=== PATIENT | male | born 1945 | race Caucasian/White ===

== ENCOUNTER → 2017-10-11 | Outpatient (CLI) | payer OTHER ==
[~2017-10-11] MED LIST: ALDACTONE25 MG PO; ALLOPURINOL 30300 M1 PO; ALLOPURINOL 30300 M3 PO; BACTROBAN CREAM30 G1 TOP; BYSTOLIC20 MG PO; CARDIZEM CD120 MG PO; CARDIZEM CD240 MG; CARTIA XT240 M1 PO; CASODEX 50 MG T50 M1 PO; CATAPRESS3 TOP; CLONIDINE HCL0.3 M2; CLONIDINE HCL0.3 M2 PO; CREON DR 12,001 EACH PO; DEMADEX20 MG PO; DILTIAZEM ER240 M1; DILTIAZEM ER240 M1 PO; DYNACIN100 MG; DYNACIN100 MG PO; EFFEXOR XR37.5 MG PO; FOLIC ACID1 MG; FOLIC ACID1 MG PO; GLUCOPHAGE1000 MG; GLUCOPHAGE1000 MG PO; GLUCOTROL5 MG; GLUCOTROL5 MG PO; GRALISE600 MG; GRALISE600 MG PO; HUMALOG PE100 UNIT/M SC; IBUPROFEN 800800 M1; IBUPROFEN 800800 M1 PO; IRON325; IRON325 PO; K-DUR 20 MEQ T20 MEQ PO; KEFLEX500 M1 PO; LANTUS SOL100 UNIT/1 SQ; LEVOTHYROXINE100 MC1 PO; LISINOPRIL40 MG PO; LOSARTAN-HCTZ1 EAC3 PO; METHOTREXATE 22.5 MG; METHOTREXATE 22.5 MG IJ; METHOTREXATE 22.5 MG PO; MINOCIN100 MG PO; MULTIVITAMINS1 EAC7; MULTIVITAMINS1 EAC7 PO; MYSOLINE50 MG PO; NEURONTIN 400400 M1 PO; NORCO 10-325 T1 EACH PO; NORCO 5-325 TA1 EAC1 PO; NOVOLOG100 UNIT/1 SUBQ; PACERONE 200 M200 M1 PO; PAXIL 20 MG TAB20 M1 PO; PERCOCET 5-3251 EACH; POTASSIUM20; POTASSIUM20 PO; PREVALITE PACKE1 PKT; PREVALITE PACKE1 PKT PO; PROBIOTIC1 EACH; PROBIOTIC1 EACH PO; PROPAFENONE 15150 MG PO; PROTONIX40 M1 PO; SINGULAIR 10 MG10 M1 PO; SPIRONOLACTONE25 M1; SPIRONOLACTONE25 M1 PO; TAMSULOSIN HCL0.4 MG; TAMSULOSIN HCL0.4 MG PO; TORSEMIDE20 MG; TORSEMIDE20 MG PO; TRIAMTERENE-HC1 EAC3 PO; VENTOLIN HFA 1818 GM INH; VITAMIN D1000 UNI1 PO; VITAMINC500 PO; VITCB500GO; XARELTO20 MG PO
== END ==
LOC: M.LAB 11:09
DX: I48.0 Paroxysmal atrial fibrillation (principal)

== ENCOUNTER 2017-12-24 09:42 | Emergency (ER) | payer OTHER ==
[~2017-12-24] VITALS: Ht 175.3 cm; Wt 90.7 kg
[~2017-12-24 09:42] MED LIST changes: -BACTROBAN CREAM30 G1 TOP; -CASODEX 50 MG T50 M1 PO; -KEFLEX500 M1 PO; -LEVOTHYROXINE100 MC1 PO; -VITAMIN D1000 UNI1 PO
[2017-12-24] MEDS ORDERED: CASODEX 50 MG T50 M1 PO (10:07)
[2017-12-24] MEDS ORDERED: VITAMIN D1000 UNI1 PO (10:07)
[2017-12-24] MEDS ORDERED: LEVOTHYROXINE100 MC1 PO (10:09)
[2017-12-24 10:37] LABS: ABSOLUTE EOSINOPHILS 0.3 thou/uL (0.0-0.7); ABSOLUTE LYMPHOCYTES 0.7 thou/uL (0.8-5.3); ABSOLUTE MONOCYTES 0.3 thou/uL (0.0-1.2); ABSOLUTE NEUTROPHILS 3.8 thou/uL (1.6-8.1); BASOPHILS 0.5 %; EOSINOPHILS 5.4 %; HEMATOCRIT 35.4 % (42.0-52.0); HEMOGLOBIN 11.9 gm/dL (14.0-18.0); LYMPHOCYTES 13.1 %; MCH 31.1 pg (26.0-34.0); MCHC 33.5 g/dL (28.0-37.0); MCV 92.7 fL (80.0-100.0); MONOCYTES 5.4 %; MPV 7.1 fl. (7.2-11.1); NUCLEATED RBCS 0 /100WBC; PLATELET COUNT* 208 thou/uL (150-400); POLYS 75.6 %; RBC 3.82 mil/uL (4.50-6.00); RDW-CV 14.9 % (10.5-14.5)
[2017-12-24 10:43] LABS: APTT 34.8 Seconds (25.0-31.3); CALCIUM 8.5 mg/dL (8.5-10.1); CREATININE 2.3 mg/dL (0.6-1.3); INR 1.1; POTASSIUM 3.6 mmol/L (3.5-5.1); PROTIME 10.9 Seconds (9.20-11.50)
[2017-12-24 10:48] LABS: ALBUMIN 3.3 g/dL (3.4-5.0); TOTAL BILIRUBIN 0.2 mg/dL (<0.1-1.0); TOTAL PROTEIN 6.2 g/dL (6.4-8.2)
[2017-12-24] MEDS ORDERED: KEFLEX500 M1 PO (14:07)
[2017-12-24] MEDS ORDERED: BACTROBAN CREAM30 G1 TOP (14:09)
[2017-12-24 14:25] VITALS: BP 128/66
== END 2017-12-24 14:28 | disposition home or self-care (01) ==
LOC: M.ERS 09:42
PROVIDERS: Nurse Practitioner Family
DX: S80.02XA Contusion of left knee, initial encounter (principal); S80.212A Abrasion, left knee, initial encounter; S80.211A Abrasion, right knee, initial encounter; E11.9 Type 2 diabetes mellitus without complications; I10 Essential (primary) hypertension; M10.9 Gout, unspecified; M19.90 Unspecified osteoarthritis, unspecified site; Z90.49 Acquired absence of other specified parts of digestive tract; Z87.891 Personal history of nicotine dependence; W10.9XXA Fall (on) (from) unspecified stairs and steps, initial encounter; Y93.89 Activity, other specified; Y92.89 Other specified places as the place of occurrence of the external cause; Y99.8 Other external cause status

== ENCOUNTER → 2018-01-20 | Outpatient (CLI) | payer OTHER ==
[~2018-01-20] MED LIST changes: +BACTROBAN CREAM30 G1 TOP; +CASODEX 50 MG T50 M1 PO; +KEFLEX500 M1 PO; +LEVOTHYROXINE100 MC1 PO; +VITAMIN D1000 UNI1 PO
--- NOTE | 2018-01-20 18:47 | 2DMMODE ---
[place] [address] 2 D/M-MODE ECHOCARDIOGRAM Name: ANAYA,TRINIAshley ALEXANDER [id number] Admission: 01/20/18 Attend Phys: Raymon Guerrier, Discharge: Date of : 47 Date of Service: 01/20/18 1847 Report #: [id number] THIS REPORT FOR: //name// APPROVED REPORT Study performed: 01/20/2018 15:18:26 EXAM: Comprehensive 2D, Doppler, and color-flow Echocardiogram Patient Location: Out-Patient Status: routine BSA: 2.09 HR: 49 bpm BP: 118/68 mmHg Other Information Study Quality: Good Indications Mitral Valve Disease 2D Dimensions LVEF(%): 84.06 (>50%) IVSd: 14.34 (7-11mm) LVOT Diam: 20.36 (18-24mm) LVDd: 61.28 mm PWd: 11.67 (7-11mm) Ascending Ao: 35.67 (22-36mm) LVDs: 28.22 (25-40mm) Aortic Root: 23.77 mm Ventura's LVEF: 84.06 % Volumes Left Atrial Volume (Systole) LA ESV Index: 28.60 mL/m2 Aortic Valve AoV Peak Owen.: 1.87 m/s AO Peak Gr.: 13.99 mmHg LVOT Max P.79 mmHg AO Mean Gr.: 7.17 mmHg LVOT Mean P.94 mmHg LVOT Max V: 0.97 m/s AO V2 VTI: 32.72 cm LVOT Mean V: 0.65 m/s JULIO C (VTI): 1.69 cm2 LVOT V1 VTI: 16.95 cm Mitral Valve MV Peak Gr.: 9.19 mmHg MV Mean Gr.: 3.57 mmHg E/A Ratio: 3.15 [place] [address] 2 D/M-MODE ECHOCARDIOGRAM Name: ILEANA JULIENAshley ALEXANDER Room: [facility]#: [id number] Admission: 01/20/18 Attend Phys: Raymon Guerrier, Discharge: Date of : 47 Date of Service: 01/20/18 1847 Report #: [id number] MV Decel. Time: 229.99 ms MV E Max Owen.: 1.47 m/s MV PHT: 66.70 ms MVA (PHT): 3.30 cm2 TDI E/Lateral E': 9.80 E/Medial E': 11.31 Medial E' Owen.: 0.13 m/s Lateral E' Owen.: 0.15 m/s Pulmonary Valve PV Peak Owen.: 1.14 m/s PV Peak Gr.: 5.17 mmHg Tricuspid Valve TR Peak Gr.: 39.26 mmHg RVSP: 44.26 mmHg Left Ventricle The left ventricle is normal size. There is normal LV segmental wall motion. There is normal left ventricular wall thickness. Left ventricular systolic function is normal. The left ventricular ejection fraction is within the normal range. LVEF is 55-60%. Right Ventricle The right ventricle is normal size. The right ventricular systolic function is normal. Atria Left atrium is moderately dilated. The right atrium size is normal. Aortic Valve Mild aortic valve sclerosis. No aortic regurgitation is present. There is no aortic valvular stenosis. Mitral Valve There is mild mitral annular calcification. Moderate mitral regurgitation. No evidence of mitral valve stenosis. Tricuspid Valve The tricuspid valve is normal in structure. Mild to moderate tricuspid regurgitation. The RVSP is __44.3 mmHg. Pulmonic Valve The pulmonary valve is normal in structure. Mild to moderate [place] [address] 2 D/M-MODE ECHOCARDIOGRAM Name: ILEANA JULIENAshley ALEXANDER Room: [facility]#: [id number] Admission: 01/20/18 Attend Phys: Raymon Guerrier, Discharge: Date of : 47 Date of Service: 01/20/18 1847 Report #: [id number] Great Vessels The aortic root is normal in size. IVC is normal in size and collapses <50% with inspiration. Pericardium There is no pericardial effusion. <Conclusion> The left ventricle is normal size. There is normal left ventricular wall thickness. Left ventricular systolic function is normal. The left ventricular ejection fraction is within the normal range. LVEF is 55-60%. The right ventricle is normal size. Left atrium is moderately dilated. The right atrium size is normal. Mild aortic valve sclerosis. No aortic regurgitation is present. There is no aortic valvular stenosis. There is mild mitral annular calcification. Moderate mitral regurgitation. No evidence of mitral valve stenosis. The tricuspid valve is normal in structure. Mild to moderate tricuspid regurgitation. The RVSP is __44.3 mmHg. IVC is normal in size and collapses <50% with inspiration. There is no pericardial effusion. There is normal LV segmental wall motion. <ELECTRONICALLY SIGNED> By: Yanick Moore MD, FACC 01/20/181846 46 46 Yanick Moore MD, FACC /INF
== END ==
LOC: M.CRD 15:00
DX: I08.1 Rheumatic disorders of both mitral and tricuspid valves (principal); I25.10 Atherosclerotic heart disease of native coronary artery without angina pectoris; I71.9 Aortic aneurysm of unspecified site, without rupture; I48.91 Unspecified atrial fibrillation

== ENCOUNTER → 2018-02-28 | Outpatient (CLI) | payer OTHER | LOC: M.RAD 11:24 | DX: M25.512 Pain in left shoulder (principal); R29.898 Other symptoms and signs involving the musculoskeletal system; W19.XXXD Unspecified fall, subsequent encounter ==

== ENCOUNTER → 2018-03-11 | Outpatient (CLI) | payer OTHER ==
[2018-03-11 15:51] LABS: CREATININE 2.4 mg/dL (0.6-1.3)
== END ==
LOC: M.LAB 12:30 → M.MRI 13:30 → M.LAB 15:21
PROVIDERS: Registered Nurse Diabetes Educator
DX: M54.6 Pain in thoracic spine (principal); M54.5 Low back pain; R29.898 Other symptoms and signs involving the musculoskeletal system; W19.XXXD Unspecified fall, subsequent encounter

== ENCOUNTER → 2018-10-03 | Outpatient (CLI) | payer OTHER ==
[2018-10-03 10:34] LABS: ALBUMIN 3.3 g/dL (3.4-5.0); CALCIUM 8.6 mg/dL (8.5-10.1); CREATININE 2.5 mg/dL (0.6-1.3); POTASSIUM 3.4 mmol/L (3.5-5.1); TOTAL BILIRUBIN 0.2 mg/dL (<0.1-1.0); TOTAL PROTEIN 6.6 g/dL (6.4-8.2)
== END ==
LOC: M.LAB 09:42
PROVIDERS: Nurse Practitioner Family
DX: I48.92 Unspecified atrial flutter (principal)

== ENCOUNTER → 2018-10-10 | Outpatient (CLI) | payer OTHER ==
[2018-10-10 13:36] VITALS: BP 119/86
[2018-10-10 13:54] VITALS: BP 123/90
[2018-10-10 13:57] VITALS: BP 123/90
[2018-10-10 13:58] VITALS: BP 127/83
[2018-10-10 14:00] VITALS: BP 128/89
[2018-10-10 14:05] VITALS: BP 131/85
== END ==
LOC: M.RAD 11:50 → M.CL 11:50
DX: I48.92 Unspecified atrial flutter (principal); I50.32 Chronic diastolic (congestive) heart failure; I10 Essential (primary) hypertension; I48.0 Paroxysmal atrial fibrillation; E11.9 Type 2 diabetes mellitus without complications; E03.9 Hypothyroidism, unspecified; Z79.4 Long term (current) use of insulin; Z79.899 Other long term (current) drug therapy

== ENCOUNTER → 2019-02-04 | Outpatient (CLI) | payer OTHER | LOC: M.CT 01-30 08:55 | DX: C61 Malignant neoplasm of prostate (principal); N20.0 Calculus of kidney; N28.89 Other specified disorders of kidney and ureter; I70.0 Atherosclerosis of aorta; Z92.3 Personal history of irradiation ==

== ENCOUNTER → 2019-03-17 | Outpatient (CLI) | payer OTHER ==
[2019-03-17] VITALS (12 sets, daily range): BP systolic 127–1222; BP diastolic 73–94
[~2019-03-17] MED LIST changes: +CARDIZEM CD240 M1; -CARTIA XT240 M1 PO; +CATAPRES0.2 MG; -EFFEXOR XR37.5 MG PO; +EFFEXOR XR75 MG; +LANTUS SOL100 UNIT/1 SUBQ; -LEVOTHYROXINE100 MC1 PO; +LEVOTHYROXINE75 MCG; +MYSOLINE250 M1; -MYSOLINE50 MG PO; +NOVOLOG FL100 UNIT/M SUBQ; +VITAMIN B-121000 MC3; -VITAMIN D1000 UNI1 PO; +VITAMIN D5000 UNIT; +XARELTO15 MG
--- NOTE | 2019-03-17 14:41 | TEE ---
[place] [address] TRANSESOPHAGEAL ECHOCARDIOGRAM Name: TRINI JULIEN Room: [facility]#: [id number] Admission: 03/17/19 Attend Phys: Raymon Guerrier, Discharge: Date of : 47 Date of Service: 03/17/19 1441 Report #: [id number] THIS REPORT FOR: //name// APPROVED REPORT Study performed: 03/17/2019 13:14:12 EXAM: Transesophageal Echocardiogram Patient Location: In-Patient Status: routine BSA: 2.04 HR: 103 bpm BP: 138/90 mmHg Rhythm: Atrial Fibrillation Other Information Study Quality: Good Indications pre-ablation Echo Enhancing Agent Indication: Rule out Shunt Agent(s) / Amount(s) Used: Optison, Agitated Saline 10 cc Procedure After obtaining informed consent, patient underwent transesophageal echo in the [employer]. Type of Sedation : Conscious Sedation Sedation was administered by Tawny Biggs RN. Sedation start time: 1321 Case end Time: 1336 Sedation was achieved intravenously with: Versed (2) Fentanyl (50) Transesophageal probe was inserted and advanced into esophagus without difficulty by Raymon Guerrier MD, FACC. Echo enhancement indication: R/O Septal defect. Echo enhancement agent administered: Agitated Saline The TONY was performed without complications. Throughout the procedure, the blood pressure, pulse oximetry, cardiac rhythm, and rate were monitored. The patient tolerated the procedure without adverse effects. Recovery from conscious sedation was uneventful and [place] [address] TRANSESOPHAGEAL ECHOCARDIOGRAM Name: TRINI JULIEN [facility] [id number] Admission: 03/17/19 Attend Phys: Raymon Guerrier, Discharge: Date of : 47 Date of Service: 03/17/19 1441 Report #: [id number] Left Ventricle The left ventricle is normal size. There is normal LV segmental wall motion. There is normal left ventricular wall thickness. Left ventricular systolic function is normal. LVEF is 55-60%. Right Ventricle The right ventricle is normal size. The right ventricular systolic function is normal. Atria The left atrium size is normal. No thrombus is visualized in the left atrium or appendage. Injection of contrast documented no interatrial shunt. The right atrium size is normal. Aortic Valve Aortic valve leaflets are mildly thickened. No aortic regurgitation is present. There is no aortic valvular stenosis. Mitral Valve The mitral valve is normal in structure. Moderate to severe anteriorly directed mitral regurgitation No evidence of mitral valve stenosis. Tricuspid Valve Tricuspid valve is not well visualized. Mild tricuspid regurgitation. Pulmonic Valve Pulmonic valve is not well visualized. Great Vessels The aortic root is normal in size. Pericardium There is no pericardial effusion. <Conclusion> The left ventricle is normal size. There is normal left ventricular wall thickness. Left ventricular systolic function is normal. LVEF is 55-60%. Aortic valve leaflets are mildly thickened. Moderate to severe anteriorly directed mitral regurgitation Mild tricuspid regurgitation. The left atrium size is normal. [address] [address] TRANSESOPHAGEAL ECHOCARDIOGRAM Name: TRINI JULIEN Room: [facility]#: [id number] Admission: 03/17/19 Attend Phys: Raymon Guerrier, Discharge: Date of : 47 Date of Service: 03/17/19 1441 Report #: [id number] No thrombus is visualized in the left atrium or appendage. Injection of contrast documented no interatrial shunt. <ELECTRONICALLY SIGNED> By: Raymon Guerrier MD, FACC 03/17/191440 40 40 Raymon Guerrier MD, FACC /INF
== END | disposition home or self-care (01) ==
LOC: M.CL 12:04
DX: I08.1 Rheumatic disorders of both mitral and tricuspid valves (principal); I48.91 Unspecified atrial fibrillation; I11.0 Hypertensive heart disease with heart failure; I50.9 Heart failure, unspecified; E11.9 Type 2 diabetes mellitus without complications; M10.9 Gout, unspecified; M19.90 Unspecified osteoarthritis, unspecified site; G62.9 Polyneuropathy, unspecified; F32.9 Major depressive disorder, single episode, unspecified; Z79.01 Long term (current) use of anticoagulants; Z98.890 Other specified postprocedural states; Z79.899 Other long term (current) drug therapy; Z87.442 Personal history of urinary calculi

== ENCOUNTER → 2019-03-30 | Outpatient (CLI) | payer OTHER ==
[2019-03-30 09:06] LABS: HEMATOCRIT 42.5 % (42.0-52.0); HEMOGLOBIN 14.5 gm/dL (14.0-18.0); MCH 32.2 pg (26.0-34.0); MCHC 34.1 g/dL (28.0-37.0); MCV 94.5 fL (80.0-100.0); MPV 7.3 fl. (7.2-11.1); RBC 4.5 mil/uL (4.50-6.00); RDW-CV 14.7 % (10.5-14.5); WBC 5.4 thou/uL (4.0-11.0)
[2019-03-30 09:27] LABS: ALBUMIN 3.6 g/dL (3.4-5.0); CALCIUM 8.7 mg/dL (8.5-10.1); CREATININE 2.1 mg/dL (0.6-1.3); POTASSIUM 4.4 mmol/L (3.5-5.1); TOTAL BILIRUBIN 0.3 mg/dL (<0.1-1.0); TOTAL PROTEIN 6.3 g/dL (6.4-8.2)
== END ==
LOC: M.LAB 03-05 08:47
PROVIDERS: Internal Medicine Cardiovascular Disease
DX: D35.01 Benign neoplasm of right adrenal gland (principal); K86.89 Other specified diseases of pancreas; I48.91 Unspecified atrial fibrillation

== ENCOUNTER → 2019-12-02 | Outpatient (CLI) | payer OTHER ==
[~2019-12-02] MED LIST changes: +CARTIA XT180 M1 PO; +CARVEDILOL12.5 MG PO; +LANTUS SUBQ; -LEVOTHYROXINE75 MCG; +LEVOTHYROXINE75 MCG PO; +LYRICA 50 MG50 MG PO; +MYSOLINE50 MG PO; +OMEPRAZOLE40 MG PO; +PREGABALIN75 MG PO; +PROVIGIL 100 M100 M1 PO; +VITAMIN B12-FO1 EAC1 PO; +VITAMIN D35000 UNI2 PO; +ZALEPLON 10 MG10 M1 PO
== END ==
LOC: M.WC 08:45
DX: T81.89XA Other complications of procedures, not elsewhere classified, initial encounter (principal); E11.65 Type 2 diabetes mellitus with hyperglycemia; E11.40 Type 2 diabetes mellitus with diabetic neuropathy, unspecified; G47.30 Sleep apnea, unspecified; I11.0 Hypertensive heart disease with heart failure; I50.9 Heart failure, unspecified; I48.20 Chronic atrial fibrillation, unspecified; M06.9 Rheumatoid arthritis, unspecified; M10.9 Gout, unspecified; F32.9 Major depressive disorder, single episode, unspecified; Z98.49 Cataract extraction status, unspecified eye; Z85.46 Personal history of malignant neoplasm of prostate; Z90.49 Acquired absence of other specified parts of digestive tract; Z79.4 Long term (current) use of insulin; Y92.89 Other specified places as the place of occurrence of the external cause; Y83.8 Other surgical procedures as the cause of abnormal reaction of the patient, or of later complication, without mention of misadventure at the time of the procedure

== ENCOUNTER 2019-12-03 09:58 | Inpatient (IN) | payer OTHER ==
[~2019-12-03] VITALS: Ht 175.3 cm; Wt 92.5 kg
--- NOTE | ~2019-12-03 | OP ---
[address] [address] OPERATIVE REPORT Name: TRINI JULIEN Room: [address] IN .R.#: [id number] Admission: 12/03/19 Attend Phys: Nara Smith MD Discharge: Date of : 47 Report #: [id number] THIS REPORT FOR: //name// cc: Ger Francisco MD, David L. MD ~ THIS REPORT FOR: //name// CC: Ger Smith DICTATED BY: Taurus Danielson DO DATE OF SERVICE: 12/04/2019 PREOPERATIVE DIAGNOSIS: Failed left ankle ORIF with wound dehiscence and ulcers down to the level of bone. POSTOPERATIVE DIAGNOSIS: Failed left ankle ORIF with wound dehiscence and ulcers down to the level of bone. PROCEDURE: Left below-knee amputation. SURGEON: Katerin Haque D.O. HYDRAULIC LIFT DRIVER: Taurus Danielson D.O. ANESTHESIA: Spinal. FLUIDS: Crystalloid per Anesthesia. ESTIMATED BLOOD LOSS: 100 mL. DRAINS: None. SPECIMENS: Left lower leg. COMPLICATIONS: None. CONDITION: Stable to PACU. DISPOSITION: Recovery in PACU and transfer to the floor. ANTIBIOTICS: Scheduled Ancef and cefepime. TOURNIQUET: Approximately 30 minutes at [address] [address] OPERATIVE REPORT Name: TRINI JULIEN Room: [address]#: [id number] Admission: 12/03/19 Attend Phys: Nara Smith MD Discharge: Date of : 47 Report #: [id number] INDICATIONS FOR PROCEDURE: The patient is a 74-year-old male who sustained a left ankle fracture while traveling in [place]. He underwent surgery there. Upon returning back home, he followed up in our clinic. His hardware was found to have failed. He then attempted a repeat closed reduction, but continued to ambulate on the left lower extremity. He does have a known history of neuropathy and diabetes. He was recently readmitted for altered mental status. He was found to have blood cultures with gram-positive cocci. He had wound dehiscence down to the level of the bone with a foul-smelling odor. Several long discussions were had with the family in regards to the best treatment moving forward. We discussed both limb salvage and below-knee amputation. The risks, benefits, and alternatives and possible complications including continued wound issues, infection, need for further amputation, need for further surgeries, inability to ambulate on the extremity, DVT, PE, sepsis, , possible complications with anesthesia, and other unforeseeable complications were discussed at length. Ultimately, it was decided to undergo a left below-knee amputation given his multiple comorbidities and severity of his injury and skin dehiscence. The patient agreed to proceed. DESCRIPTION OF PROCEDURE: The patient was met in the preoperative area. Consent was obtained. The correct site was marked. He was transferred to the operative suite. A spinal anesthesia was administered by the anesthesia team. He was placed supine on the operative table and secured to the table. All bony prominences were well padded. A nonsterile tourniquet was applied on the upper left thigh. The left lower extremity was prepped and draped in the normal sterile fashion. He was already on scheduled antibiotics. A timeout was performed to identify the correct patient, procedure, operative site, and antibiotics. All in the room were in agreement. The left lower extremity was then elevated. The tourniquet was then inflated to 300 mmHg. Fluoroscopy was used to identify the level of the failed hardware and the location of the amputation site. An anterior incision was made across the leg approximately 10 cm distal to the tibial tubercle. We then curved this distally on the posterior aspect of the leg and carried this approximately 7-8 mm in order to create a posterior flap. Sharp and blunt dissection was carried down to the level of the bone. All nerves that were encountered were sharply dissected with a knife. All arteries and veins were cauterized or ligated with a combination of vascular clips and silk ties. We then proceeded with an osteotomy first of the fibula. We then followed with an osteotomy of the tibia. We ensured that the fibular osteotomy was a couple of centimeters proximal to the tibia. The anterior tibia was then cut at an angle and then the edges of the bone were smoothed out with a rasp. At this point, we debulked a deep soft tissue to allow for adequate closure of the skin with a posterior flap. The wound was then thoroughly irrigated with normal saline. We then let the tourniquet down at this time. All arteries and veins were then identified, which had not been done so before. These were then ligated with a combination of vascular clips and silk ties. Once adequate hemostasis had been obtained, we again thoroughly irrigated the wounds. We then used 0 PDS to reapproximate the deep fascia, [place] [address] OPERATIVE REPORT Name: TRINI JULIEN Room: [address] IN .R.#: [id number] Admission: 12/03/19 Attend Phys: Nara Smith MD Discharge: Date of : 47 Report #: [id number] posterior soft tissues anteriorly. We had good soft tissue coverage of the bony prominences. We then reapproximated the subcutaneous tissue with 2-0 Monocryl sutures. This was followed by 3-0 nylon sutures on the skin in a combination of simple and horizontal mattress fashion. Sterile dressing was then applied which included Xeroform, 4 x 4s, ABDs, Kerlix, and Garo wraps. All needle and sponge counts were correct x 2 at the end of the case. He was transferred to the PACU in stable condition. There were no obvious complications. Dr. Haque was present and scrubbed throughout all critical aspects of the case. By: 1740 1910Katerin Haque DO /nt
[~2019-12-03 09:58] MED LIST changes: -LANTUS SUBQ; -PROVIGIL 100 M100 M1 PO; +PROVIGIL 100 M100 MG PO; -VITAMIN B12-FO1 EAC1 PO; -VITAMIN D35000 UNI2 PO
[2019-12-03 10:13] VITALS: BP 130/69
[2019-12-03] MEDS ORDERED: VITAMIN B12-FO1 EAC1 PO (10:24)
[2019-12-03] MEDS ORDERED: LANTUS SUBQ (10:24)
[2019-12-03] MEDS ORDERED: VITAMIN D35000 UNI2 PO (10:24)
[2019-12-03 10:41] LABS: ABSOLUTE LYMPHOCYTES 0.7 thou/uL (0.8-5.3); ABSOLUTE MONOCYTES 0.4 thou/uL (0.0-1.2); ABSOLUTE NEUTROPHILS 6.8 thou/uL (1.6-8.1); BASOPHILS 0.3 %; EOSINOPHILS 0.2 %; HEMATOCRIT 36.9 % (42.0-52.0); HEMOGLOBIN 12.4 gm/dL (14.0-18.0); LYMPHOCYTES 9.2 %; MCH 31.3 pg (26.0-34.0); MCHC 33.6 g/dL (28.0-37.0); MCV 93.3 fL (80.0-100.0); MONOCYTES 5.6 %; MPV 9.1 fl. (7.2-11.1); NUCLEATED RBCS 0 /100WBC; PLATELET COUNT* 173 thou/uL (150-400); POLYS 84.7 %; RBC 3.95 mil/uL (4.50-6.00); RDW-CV 14.6 % (10.5-14.5); WBC 8.1 thou/uL (4.0-11.0)
[2019-12-03 10:42] LABS: URINE BILIRUBIN NEGATIVE (Negative); URINE BLOOD 1+ (Negative); URINE CLARITY CLEAR; URINE COLOR YELLOW; URINE GLUCOSE-RANDOM NEGATIVE (Negative); URINE KETONES NEGATIVE (Negative); URINE LEUKOCYTES-REFLEX NEGATIVE (Negative); URINE NITRITE-REFLEX NEGATIVE (Negative); URINE PROTEIN TRACE (Negative); URINE UROBILINOGEN 0.2 E.U./dl (0.2-1.0)
[2019-12-03 10:48] LABS: CALCIUM 8.6 mg/dL (8.5-10.1); CREATININE 1.7 mg/dL (0.6-1.3); POTASSIUM 4.5 mmol/L (3.5-5.1)
[2019-12-03 10:51] LABS: APTT 34.5 Seconds (25.0-31.3); INR 1.2
[2019-12-03 10:59] LABS: ALBUMIN 2.9 g/dL (3.4-5.0); TOTAL BILIRUBIN 0.5 mg/dL (<0.1-1.0); TOTAL PROTEIN 6.1 g/dL (6.4-8.2)
[2019-12-03 11:01] LABS: BACTERIA-REFLEX 1-9 Few /HPF (None Seen); CASTS None Seen /LPF (None Seen); MUCUS None Seen strn/LPF (None Seen); SQUAMOUS 0-3 Few /LPF (0-3); URINE RBC 3-10 Few /HPF (0-2); URINE WBC-REFLEX 0-5 Rare /HPF (0-5)
[2019-12-03 11:02] LABS: CRYSTALS None Seen /LPF (None Seen)
[2019-12-03 11:16] LABS: INFLUENZA A ANTIGEN Negative (Negative); INFLUENZA B ANTIGEN Negative (Negative)
[2019-12-03 14:38] VITALS: BP 108/51
[2019-12-03 16:02] VITALS: BP 118/60
[2019-12-03 21:20] VITALS: BP 146/70
[2019-12-04] VITALS (13 sets, daily range): BP systolic 104–171; BP diastolic 65–87
--- NOTE | 2019-12-04 08:15 | CON ---
[address] [address] CONSULTATION Name: ILEANA JULIENN Rehan Room: [address] IN M.R.#: [id number] Admission: 12/03/19 Attend Phys: Nara Smith MD Discharge: Date of : 47 Report #: [id number] THIS REPORT FOR: //name// cc: Ger Francisco MD, David L. MD ~ THIS REPORT FOR: //name// CC: Ger Smith DATE OF SERVICE: 12/03/2019 INFECTIOUS DISEASE CONSULTATION ATTENDING PHYSICIAN: Dr. Smith. REASON FOR EVALUATION: Fever, encephalopathy, recent left ankle fracture that was complex required surgical repair. HISTORY OF PRESENT ILLNESS: Chart reviewed, the patient examined. This is a 74-year-old gentleman with diabetes mellitus type 2, gout, recent left distal leg fracture. It is notable that this occurred while on vacation in [place], did have a repair there. [place] the [place] and was promptly admitted. He did spend several days, transferred to a rehab facility, had been undergoing physical therapy, also wound care. He was seen in Wound Care Clinic, was concerned to have a possible bony exposure following the evaluation. At that point, he was generally lucid, although perhaps sleepy. For the course of next 24 hours, he was quite encephalopathic. He was noted to be febrile, temperature greater than 102. Referred for evaluation and subsequently admitted. He has been seen by Orthopedic Surgery, pending recommendations. Underwent arterial indices showed ABIs at 1.0. Concern about some noncompressible arteries. Initial lactic acid 1.4. Urinalysis was otherwise unremarkable. Influenza antigen was negative. Plain film showed an ORIF distal fibula and medial malleolus. No evidence of healing, in fact worsening and further displacement of the fracture described. Review of the record did show he has fallen while at the rehab facility on at least 2 occasions. He does arouse, has moderate pain and discomfort at this point. He is not really able to give any additional history. ALLERGIES: None known. MEDICATIONS: Include diltiazem, venlafaxine, spironolactone, tamsulosin, allopurinol, levothyroxine, vancomycin, pregabalin, insulin glargine, carvedilol, furosemide, primidone, clonidine, hydrocodone, cefepime. PAST MEDICAL HISTORY: Diabetes mellitus type 2, hypertension, gout, [place] [address] CONSULTATION Name: TRINI JULIEN Room: [address]#: [id number] Admission: 12/03/19 Attend Phys: Nara Smith MD Discharge: Date of : 47 Report #: [id number] lithiasis, arthritis, history of atrial fibrillation, neuropathy, pancreatitis, depression. SOCIAL HISTORY: Nonsmoker, no ethanol, no illicit drug use. FAMILY HISTORY: Noncontributory. REVIEW OF SYSTEMS: Not reliably obtained. PHYSICAL EXAMINATION: GENERAL: He is difficult to arouse. He does awaken. He is in qqoe-il-xtjqxhyr distress, appears somewhat pale. VITAL SIGNS: Temperature max 102.4, more recently 98.6, pulse rate 98, respirations 18, blood pressure is 118/60. SKIN: Warm, dry, no rashes. HEENT: Normocephalic. Extraocular muscles intact. NECK: Supple. LUNGS: Diminished breath sounds. Few scattered crackles. HEART: Borderline tachycardic, seems to be regular with some ectopy. ABDOMEN: Soft, nontender. EXTREMITIES: Does have a large dressing in place over the left distal leg, ankle, foot. Foot slightly cool to touch. GENITOURINARY AND RECTAL: Deferred. LABORATORY DATA: As described above. Urinalysis 0-5 white cells. Electrolytes: Sodium 139, potassium 4.5, chloride 103, bicarbonate 26, anion gap of 10, BUN and creatinine 33 and 1.7, glucose of 287. LFTs unremarkable. Albumin of 2.9, total protein 6.1. Lactic acid of 1.4. CBC: White count of 8.1, H and H 12.4 and 36.9, platelets of 173. ASSESSMENT: Febrile illness with associated encephalopathy, certainly concerning given the radiographic findings, a possibility of exposed bone at this point. We will continue empiric broad-spectrum antimicrobial therapy. Discussed with orthopedic surgeon if there is any indication for additional surgery at this point. Monitor expectantly. Add incentive spirometry, although he is not able to at the moment. Certainly at risk for additional infectious complications. We have to monitor closely. <ELECTRONICALLY SIGNED> By: Hilton Freed MD 12/04/19 0815 1615 021Josue Freed MD /nt
[2019-12-04 08:57] LABS: ABSOLUTE LYMPHOCYTES 0.6 thou/uL (0.8-5.3); ABSOLUTE MONOCYTES 0.4 thou/uL (0.0-1.2); ABSOLUTE NEUTROPHILS 4.8 thou/uL (1.6-8.1); BASOPHILS 0.3 %; EOSINOPHILS 0.7 %; HEMATOCRIT 36.2 % (42.0-52.0); HEMOGLOBIN 12.1 gm/dL (14.0-18.0); LYMPHOCYTES 10.6 %; MCH 31.1 pg (26.0-34.0); MCHC 33.5 g/dL (28.0-37.0); MCV 92.9 fL (80.0-100.0); MONOCYTES 6.3 %; MPV 8.9 fl. (7.2-11.1); NUCLEATED RBCS 0 /100WBC; PLATELET COUNT* 168 thou/uL (150-400); POLYS 82.1 %; RDW-CV 14.6 % (10.5-14.5); WBC 5.9 thou/uL (4.0-11.0)
[2019-12-04 09:08] LABS: ALBUMIN 2.6 g/dL (3.4-5.0); CALCIUM 8.3 mg/dL (8.5-10.1); CREATININE 1.6 mg/dL (0.6-1.3); MAGNESIUM 1.7 mg/dL (1.8-2.4); POTASSIUM 3.6 mmol/L (3.5-5.1); TOTAL BILIRUBIN 0.4 mg/dL (<0.1-1.0); TOTAL PROTEIN 5.9 g/dL (6.4-8.2)
[2019-12-05] VITALS: BP 133/51
[2019-12-05 04:00] VITALS: BP 161/84; BP 92/65
[2019-12-05 07:41] LABS: HEMATOCRIT 28.8 % (42.0-52.0); MCH 31.9 pg (26.0-34.0); MCHC 34.3 g/dL (28.0-37.0); MCV 92.8 fL (80.0-100.0); MPV 8.4 fl. (7.2-11.1); RBC 3.11 mil/uL (4.50-6.00); RDW-CV 14.8 % (10.5-14.5); WBC 5.1 thou/uL (4.0-11.0)
[2019-12-05 07:45] LABS: HEMOGLOBIN 9.9 gm/dL (14.0-18.0)
[2019-12-05 07:53] LABS: CALCIUM 7.9 mg/dL (8.5-10.1); CREATININE 1.3 mg/dL (0.6-1.3); MAGNESIUM 1.6 mg/dL (1.8-2.4); POTASSIUM 3.4 mmol/L (3.5-5.1)
[2019-12-05 08:00] VITALS: BP 164/65
[2019-12-05 12:00] VITALS: BP 151/75
[2019-12-05 16:00] VITALS: BP 152/72
[2019-12-05 20:00] VITALS: BP 144/64
[2019-12-06] VITALS: BP 123/49
[2019-12-06 04:00] VITALS: BP 157/64
[2019-12-06 06:06] LABS: HEMATOCRIT 25.3 % (42.0-52.0); HEMOGLOBIN 8.5 gm/dL (14.0-18.0)
[2019-12-06 07:06] LABS: CREATININE 1.2 mg/dL (0.6-1.3); MAGNESIUM 1.9 mg/dL (1.8-2.4); POTASSIUM 3.2 mmol/L (3.5-5.1)
[2019-12-06 08:00] VITALS: BP 131/56
[2019-12-06 11:59] VITALS: BP 137/71
[2019-12-06 15:57] VITALS: BP 124/83
[2019-12-06 20:00] VITALS: BP 125/56
[2019-12-07 00:30] VITALS: BP 132/63
[2019-12-07 03:38] LABS: HEMATOCRIT 25.5 % (42.0-52.0); HEMOGLOBIN 8.6 gm/dL (14.0-18.0); MCH 31.3 pg (26.0-34.0); MCHC 33.9 g/dL (28.0-37.0); MCV 92.3 fL (80.0-100.0); MPV 8.6 fl. (7.2-11.1); RBC 2.76 mil/uL (4.50-6.00); RDW-CV 14.9 % (10.5-14.5); WBC 5.2 thou/uL (4.0-11.0)
[2019-12-07 04:00] VITALS: BP 126/60
[2019-12-07 04:06] LABS: CALCIUM 7.8 mg/dL (8.5-10.1); CREATININE 1.4 mg/dL (0.6-1.3); MAGNESIUM 1.8 mg/dL (1.8-2.4); POTASSIUM 4.4 mmol/L (3.5-5.1)
[2019-12-07 08:00] VITALS: BP 138/65
[2019-12-07 17:02] VITALS: BP 129/82
[2019-12-08 00:39] VITALS: BP 132/65
[2019-12-08 03:12] LABS: HEMATOCRIT 26.7 % (42.0-52.0); HEMOGLOBIN 8.8 gm/dL (14.0-18.0); MCH 30.6 pg (26.0-34.0); MCV 92.7 fL (80.0-100.0); MPV 8.7 fl. (7.2-11.1); RBC 2.87 mil/uL (4.50-6.00); RDW-CV 14.8 % (10.5-14.5); WBC 5.1 thou/uL (4.0-11.0)
[2019-12-08 03:24] LABS: CALCIUM 7.7 mg/dL (8.5-10.1); CREATININE 1.4 mg/dL (0.6-1.3); POTASSIUM 4.1 mmol/L (3.5-5.1)
[2019-12-08 04:00] VITALS: BP 126/56
[2019-12-08 09:01] VITALS: BP 147/67; BP 161/98
--- NOTE | 2019-12-08 13:08 | PATH ---
[address] [address] PATHOLOGY RPT PROCEDURE Name: MANDO MONTAÑO Room: [address] IN M.R.#: [id number] Admission: 12/03/19 Date of : 47 Discharge: Report #: [id number] Path Case #: [id number] [facility] Accession Number: [id number] . 01 Material submitted: . leg - LEFT LEG BELOW KNEE AMPUTATION. Modifiers: left . 01 Clinical history: . Failed left ankle ORIF with osteomyelitis . 02 Diagnosis: Left below knee amputation: - Benign left below the knee extremity with metallic components visible through ulcerated incision site in association with acute and chronic inflammation and necrosis of adjacent soft tissues. - Severe anterior and posterior tibial arteriosclerosis with calcification. (DENIS:lobito; 12/08/2019) MBR 12/08/2019 1146 Local . 02 Electronically signed: . Austyn Quarles MD, Pathologist NPI- [id number] . 01 Gross description: . The specimen is received fresh in a red biohazard bag, labeled "Mando Montaño, left below knee amputation". Received is a left elxfw-hfb-hkbs amputation measuring 24.8 cm from heel to toe, 21.1 cm from heel to skin margin, 28.7 cm from heel to fibular bone margin, and 30.8 cm from heel to tibial bone margin. The skin and soft tissue margins are viable. All five toes are present. The foot is slightly edematous in appearance and displays a pink-red patch on the dorsal aspect measuring 8.4 x 6.3 cm. Over the lateral malleolus and extending proximal, there is a linear incision site measuring 15.5 cm in length and ranging in diameter from 0.1 to 1.4 cm. There is a non-healing area of this incision site measuring 5.6 x 1.4 cm, which exposes underlying silver hardware. Sectioning through the anterior and posterior tibial vasculatures reveals patent lumens with a slight amount of calcification present in the posterior aspect. A section of bone is unable to be obtained due to presence of hardware. The specimen is submitted representatively as follows: . A1 skin and soft tissue margin A2 bilingual inside sales representative sections of linear well-healed incision site proximal to non-healing area A3 bilingual inside sales representative sections of non-healing area of previous incision site A4 anterior and posterior tibial vasculatures. (CAA; 12/07/2019) QAC/QAC 12/07/2019 [address] [place] [address] PATHOLOGY RPT PROCEDURE Name: MANDO MONTAÑO Room: [address] IN [facility].#: [id number] Admission: 12/03/19 Date of : 47 Discharge: Report #: [id number] Path Case #: [id number] . 02 Pathologist provided ICD-10: I70.262 . 02 CPT . 273811 Specimen Comment: A courtesy copy of this report has been sent to [phone] Specimen Comment: [phone], Specimen Comment: Report sent to ,DR ROMERO / DR SHERIDAN Performed at: 01 [facility] [address], [place], [place] [address] MD David Rosales MD Phone: [phone] Performed at: 02 [facility] [address], [place], [place] [id number] MD Austyn Quarles MD Phone: [phone]
[2019-12-08 16:09] VITALS: BP 132/91
[2019-12-09] VITALS: BP 160/81
[2019-12-09 04:00] VITALS: BP 135/62
[2019-12-09 07:58] VITALS: BP 140/62
[2019-12-09 16:00] VITALS: BP 139/64
[2019-12-09 21:09] VITALS: BP 156/69
[2019-12-10] VITALS: BP 147/73
[2019-12-10 04:00] VITALS: BP 131/66
[2019-12-10] MEDS ORDERED: OXYCODONE HCL 55 MG PO (08:43)
[2019-12-10] MEDS ORDERED: PAIN RELIEVER500 MG PO (08:43)
[2019-12-10 09:45] VITALS: BP 151/71
[2019-12-10 10:21] VITALS: BP 131/66
--- NOTE | 2019-12-11 14:58 | EKG ---
[place] [address] ELECTROCARDIOGRAM REPORT Name: TRINI JULIEN Room: [address] IN .R.#: [id number] Admission: 12/03/19 Attend Phys: Nara Smith, Discharge: 12/10/19 Date of : 47 Date of Service: 12/03/19 1047 Report #: [id number] THIS REPORT FOR: //name// [facility] ED Test Date: 2019-12-03 Test Time: 10:47:35 Pat Name: TRINI COHENANAYA Department: Room: [facility] Gender: M Home Attendant: [facility] : 1945 Requested By: Kwabena Kilgore Order Number: [id number] MD: Ger Barajas Measurements Intervals [place] Rate: 89 P: 48 TX: 160 QRS: 23 QRSD: 163 T: -20 QT: 426 QTc: 519 Interpretive Statements Sinus rhythm Right bundle branch block Compared to ECG 11/07/2019 22:37:22 Ventricular premature complex(es) no longer present Electronically Signed On 12-03-2019 12:50:26 ALLIED HEALTH TEACHER by Ger Barajas [email or web address] <ELECTRONICALLY SIGNED> By: Ger Barajas MD, FAC 12/03/19 1250 1047 1047 Ger Barajas MD, FAC /EPI
--- NOTE | 2019-12-11 14:59 | EKG ---
[place] [address] ELECTROCARDIOGRAM REPORT Name: TRINI JULIEN Room: [address] IN M.R.#: [id number] Admission: 12/03/19 Attend Phys: Nara Smith, Discharge: 12/10/19 Date of : 47 Date of Service: 12/05/19 181 Report #: [id number] THIS REPORT FOR: //name// [facility] Test Date: 2019-12-05 Test Time: 18:11:08 Pat Name: TRINIAshley JULIEN Department: Room: [address] Gender: M Core Loader: QUENTIN : 1945 Requested By: Cici Rivas Order Number: [id number] Reading MD: Ger Barajas Measurements Intervals [place] Rate: 93 P: 5 [place]: 54 QRS: 6 QRSD: 160 T: -17 QT: 423 QTc: 527 Interpretive Statements Sinus rhythm with pac's Ventricular bigeminy Short OH interval Right bundle branch block Compared to ECG 12/03/2019 10:47:35 Ventricular premature complex(es) now present Short OH interval now present Electronically Signed On 12-06-2019 11:11:03 DRIVEMATIC MACHINE OPERATOR by Ger Barajas [email or web address] <ELECTRONICALLY SIGNED> By: Ger Barajas MD, FACC 12/06/19 1111 181 181 Ger Barajas MD, [facility] /EPI
== END 2019-12-10 13:30 | DRG 853 ==
LOC: M.ERS 09:58 → M.TBA-ER 11:19 → M.ORTHSURG 11:19 → M.2W 12-04 15:34 → M.ORTHSURG 12-07 20:03
PROVIDERS: Emergency Medicine Emergency Medical Services; Internal Medicine; Orthopaedic Surgery; ADMIT Internal Medicine
PROC: 0Y6J0Z1 Detachment at Left Lower Leg, High, Open Approach (ICD-10-PCS; principal; 2019-12-04)
DX: A41.89 Other specified sepsis (principal); G92 Toxic encephalopathy; N17.0 Acute kidney failure with tubular necrosis; L03.116 Cellulitis of left lower limb; T81.30XA Disruption of wound, unspecified, initial encounter; D68.69 Other thrombophilia; M86.8X7 Other osteomyelitis, ankle and foot; I50.32 Chronic diastolic (congestive) heart failure; I13.0 Hypertensive heart and chronic kidney disease with heart failure and stage 1 through stage 4 chronic kidney disease, or unspecified chronic kidney disease; E11.42 Type 2 diabetes mellitus with diabetic polyneuropathy; G47.33 Obstructive sleep apnea (adult) (pediatric); M10.9 Gout, unspecified; M19.90 Unspecified osteoarthritis, unspecified site; F32.9 Major depressive disorder, single episode, unspecified; E03.9 Hypothyroidism, unspecified; N18.3 Chronic kidney disease, stage 3 (moderate); I34.0 Nonrheumatic mitral (valve) insufficiency; I27.20 Pulmonary hypertension, unspecified; E11.22 Type 2 diabetes mellitus with diabetic chronic kidney disease; S93.05XA Dislocation of left ankle joint, initial encounter; Y83.8 Other surgical procedures as the cause of abnormal reaction of the patient, or of later complication, without mention of misadventure at the time of the procedure; Y92.89 Other specified places as the place of occurrence of the external cause; S82.892A Other fracture of left lower leg, initial encounter for closed fracture; G25.0 Essential tremor; I48.0 Paroxysmal atrial fibrillation; E11.65 Type 2 diabetes mellitus with hyperglycemia; E11.69 Type 2 diabetes mellitus with other specified complication; Z87.442 Personal history of urinary calculi; Z82.49 Family history of ischemic heart disease and other diseases of the circulatory system; Z82.61 Family history of arthritis; Z85.46 Personal history of malignant neoplasm of prostate; Z92.3 Personal history of irradiation; Z87.891 Personal history of nicotine dependence; W18.39XA Other fall on same level, initial encounter; Y93.89 Activity, other specified; Y99.8 Other external cause status

== ENCOUNTER 2019-12-09 15:53 | Inpatient (IN) | payer OTHER ==
[~2019-12-09] VITALS: Ht 175.3 cm; Wt 82.6 kg
[~2019-12-09 15:53] MED LIST changes: +LANTUS SUBQ; +VITAMIN B12-FO1 EAC1 PO; +VITAMIN D35000 UNI2 PO
[2019-12-10] MEDS ORDERED: PAIN RELIEVER500 MG PO (08:43)
[2019-12-10] MEDS ORDERED: OXYCODONE HCL 55 MG PO (08:43)
--- NOTE | 2019-12-10 18:45 | NUR ---
74 YR OLD MALE PT ADMITTED TO ROOM 323 WITH A NEW LBKA. ADMISSION PROCESS COMPLETED. PT INSTRUCTED ON USE OF CALL LIGHT, BED CONTROLS AND TV REMOTE. FALL PRECAUTIONS IMPLEMENTED. SURGICAL DRESSING IN PLACE TO LEFT LIMB, ORTHO CONSULT PLACED FOR FURTHER DRESSING CHANGES AND ORDERS. PT IS A MAX ASSIST OF TWO FOR TRANSFERS. PRN OXY IR GIVEN X1 FOR PAIN WITH GOOD RELIEF OBTAINED.
[2019-12-10 20:00] VITALS: BP 153/70
[2019-12-11 05:07] LABS: ALBUMIN 1.9 g/dL (3.4-5.0); CREATININE 1.3 mg/dL (0.6-1.3); HEMATOCRIT 26.3 % (42.0-52.0); HEMOGLOBIN 8.9 gm/dL (14.0-18.0); MCHC 33.8 g/dL (28.0-37.0); MCV 91.5 fL (80.0-100.0); MPV 8.3 fl. (7.2-11.1); POTASSIUM 3.9 mmol/L (3.5-5.1); RBC 2.88 mil/uL (4.50-6.00); RDW-CV 15.1 % (10.5-14.5); TOTAL BILIRUBIN 0.2 mg/dL (<0.1-1.0)
--- NOTE | 2019-12-11 05:43 | NUR ---
ASSUMED CARES AT 1920. ALERT AND ORIENTED. PLEASANT. C/O PAIN TO LEFT STUMP. PAIN MEDS GIVEN NEEDED. L BKA. NWB LLE. DRESSING WITH STUMP AQUATICS COORDINATOR IN PLACE. CONTACT ISOLATION FOR VRE IN BLOOD. USED URINAL. DID SPILL URINAL AND HAD TO BE CHANGED. NURSING ASSISTED WITH CARES. BARRIER CREAM TO RASH IN GROIN. LIKES TO BE TURNED ONTO SIDES DURING THE NIGHT. SLEPT OFF AND ON. CALL LIGHT IN REACH AND BED ALARM ON.
[2019-12-11 08:30] VITALS: BP 146/70
--- NOTE | 2019-12-11 09:35 | NUR ---
Nutrition: RD assessed pt on other unit. RD will reorder [place] protein packet to aid in wound healing. Albumin 1.9, prealbumin 11.9 - severely depleted. CHO controlled diet, fair po intake. Wt: 194#. had stated pt does follow CHO diet at home and also drinks protein powders/shakes as well. No significant nutrition changes since last assessment. Mild to low nutrition risk. Will follow weekly.
--- NOTE | 2019-12-11 17:26 | NUR ---
SW met with pt to complete initial assessment, introduce self, and SW role on inpt rehab unit. Pt alert, oriented, talkative, pleasant. Pt lives at home with his . Pt has grown children who are supportive. Pt has hx of SNF at [facility] and says that they ordered wc for him that may still be delivered to his home this weekend and pt plans to bring up for pt to practice with therapies. SW provided welcome packet and pt sigend irf sujit consent form. SW to continue to follow to assist with safe dc planning.
--- NOTE | 2019-12-11 17:53 | NUR ---
PT IS ALERT AND ORIENTATED. PT TRANSFERRS WITH MOD ASSIST OF 2 AND DOES AND SQUAT PIVIOT TO BED/WC WITH QUEING AND GAITBELT.PRN FOR PAIN GIVEN WITH GOOD EFFECT. DRESSING DRY AND INTACT TO LT BKA WITH STUMP DECKHAND FISHING VESSEL ON. ORDER FOR STUMP PROTECTOR FAXED TO [employer] TODAY.PT ENJOYS WHEELING SELF AROUND UNIT TO STRENGTHEN ARMS. PT IS CONTINENT OF BLADDER USES URINAL. PT HAS EATEN LUNCH AND SUPPER IN DINNINGROOM WITH OTHERS.
[2019-12-11 20:25] VITALS: BP 136/66
--- NOTE | 2019-12-12 01:13 | NUR ---
ASSUMED CARE AT 1930. PATIENT RESTING IN BED AT CHANGE OF SHIFT. ON ISOLATION FOR VRE IN BLOOD. VOIDS PER URINAL. TOOK APAP FOR PAIN, SEE MAR. TAKES PILLS WHOLE WITH WATER. REFUSED HS SNACK. TURNS SELF IN BED. DRESSING TO STUMP D/I AND STUMP MOLDER APPRENTICE INTACT. HOURLY ROUNDS CONTINUE. BED ALARM ON. CALL LITE IN REACH.
--- NOTE | 2019-12-12 06:12 | NUR ---
SLEPT THROUGH THE NIGHT. TURNS SELF. NO C/O PAIN. VOIDED PER URINAL. HOURLY ROUNDS CONTINUE. BED ALARM ON. CALL LITE IN REACH.
[2019-12-12 07:48] VITALS: BP 146/72
--- NOTE | 2019-12-12 17:21 | NUR ---
AM ASSESSMENT AND VITAL SIGNS COMPLETED DOCUMENTED. PT IS A MAX ASSIST OF TWO FOR TRANSFERS. ORIGINAL SURGICAL DRESSING C/D/I. DR FERRELL CALLED AND SAID HE WILL SEE RHE PATIENT SATURDAY. PRN PAIN MEDICATION GIVEN WITH GOOD OUTCOME. PATIENT IS INCONTINENT OF URINE AT TIMES. FALL PRECAUTIONS AND HOURLY ROUNDING CONTINUE.
[2019-12-12 20:05] VITALS: BP 123/68
[2019-12-13 04:43] LABS: HEMOGLOBIN 8.9 gm/dL (14.0-18.0); WBC 5.1 thou/uL (4.0-11.0)
[2019-12-13 04:45] LABS: MCH 31.4 pg (26.0-34.0); MCHC 34.3 g/dL (28.0-37.0); MCV 91.5 fL (80.0-100.0); MPV 8.3 fl. (7.2-11.1); NUCLEATED RBCS 0 /100WBC; PLATELET COUNT* 292 thou/uL (150-400); RBC 2.84 mil/uL (4.50-6.00); RDW-CV 14.8 % (10.5-14.5)
[2019-12-13 04:52] LABS: ALBUMIN 2.2 g/dL (3.4-5.0); CALCIUM 7.8 mg/dL (8.5-10.1); CREATININE 1.6 mg/dL (0.6-1.3); POTASSIUM 3.8 mmol/L (3.5-5.1); TOTAL BILIRUBIN 0.2 mg/dL (<0.1-1.0); TOTAL PROTEIN 4.9 g/dL (6.4-8.2)
--- NOTE | 2019-12-13 05:37 | NUR ---
ASSUMED CARE AT 1930. PATIENT RESTING IN BED AT CHANGE OF SHIFT. ON ISOLATION FOR VRE IN BLOOD. VOIDS PER URINAL. HAD MOD BM PER BEDPAN. ABLE TO TURN SIDE TO SIDE FOR SKIN CARE. TAKES PILLS WHOLE WITH WATER. HS SNACK OF JORGE CRACKERS AND OJ. TURNS SELF IN BED. DRESSING TO STUMP C/D/I WITH STUMP SPIKE DRIVER IN PLACE. EDUCATED ON NEED TO KEEP KNEE STRAIGHT WHEN POSSIBLE TO PREVENT FLEXION CONTRACTURE. KNEE GATCH OF BED TURNED OFF TO PATIENT TO MINIMIZE KNEE BENDING WHILE HOB RAISED. HOURLY ROUNDS CONTINUE. BED ALARM ON. CALL LITE IN REACH.
[2019-12-13 07:24] LABS: ABSOLUTE EOSINOPHILS 0.1 thou/uL (0.0-0.7); ABSOLUTE LYMPHOCYTES 1.6 thou/uL (0.8-5.3); ABSOLUTE MONOCYTES 0.2 thou/uL (0.0-1.2); ABSOLUTE NEUTROPHILS 3.2 thou/uL (1.6-8.1); ATYPICAL LYMPHS 2 %; PLATELET ESTIMATE ADEQUATE
[2019-12-13 07:25] LABS: HYPOCHROMASIA Occasional
[2019-12-13 07:26] LABS: MICROCYTES Occasional
[2019-12-13 08:13] VITALS: BP 116/59
--- NOTE | 2019-12-13 16:41 | NUR ---
ASSUMMED CARE OF PT AT 0730, PT ALERT AND ORIENTED, FORGETFUL, TRANSFERS WITH MAX ASSIST GB WITH A SQUAT PIVOT, UP IN CHAIR MUCH OF DAY, DID BATHING IN CHAIR AT SINK IN WHEELCHAIR, MANUEVERS W/C WELL AND WHEELS AROUND UNIT WITHOUT DIFFICULTY, DOING EXERCIZES WITH WEIGHTS IN ROOM, BM X 1 ON TOILET, VOIDS PER URINAL, DRESSING, STUMP APPOINTMENT SPECIALIST INTACT, PT AND AWARE THAT ORTHO WILL SEE PT TOMORROW AND CHANGE DRESSING, PT HAD LUNCH IN DININGROOM, PT REFUSED TO DRESS TODAY AND WANTS TO WEAR GOWN ONLY, DID TEACHING ON DRESSING PART OF REHAB ROUTINE, TAKING FOOD AND FLUIDS WELL ASSESSMENT DONE, HOURLY ROUNDING COMPLETED, ASSESSMENT COMPLETE WILL CONTINUE TO MONITOR.
[2019-12-13 20:23] VITALS: BP 129/58
--- NOTE | 2019-12-14 05:39 | NUR ---
ASSUMED CARE AT 1930. PATIENT RESTING IN BED AT CHANGE OF SHIFT. TAKES PILLS WHOLE WITH WATER. STUMP ANODE CREW SUPERVISOR INTACT. MOVES WELL IN BED. VOIDS PER URINAL. WORE CPAP AT [facility]. ASKED ABOUT NOT HAVING TO GET DRESSED THIS MORNING. REHAB ROUTINE REINFORCED THIS NURSE SAID YESTERDAY, AND RAUL SAID ON DAY SHIFT. ALSO REINFORCED THAT ORTHO HAS BEEN CONSULTED AND PLANS ON SEEING PATIENT TODAY, WAS INSTRUCTED ON DAY SHIFT. MEDICATED FOR PAIN AT HS, NO FURTHER C/O PAIN. HOURLY ROUNDS CONTINUE. BED ALARM ON. CALL LITE IN REACH.
--- NOTE | 2019-12-14 06:13 | NUR ---
ORTHO MADE ROUNDS. HE SAID PLAN IS TO LEAVE THE DRESSING TO STUMP ALONE TODAY AND CHANGE IT ON SATURDAY. HE WILL SPEAK WITH DR. KHOURY TO GIVE UPDATE. PATIENT VERBALIZED UNDERSTANDING OF INSTRUCTIONS FROM ORTHO.
[2019-12-14 07:36] VITALS: BP 117/61
--- NOTE | 2019-12-14 15:18 | NUR ---
WOUND NURSE: PER STAFF NURSE CARING FOR PATIENT. PATIENT MANAGED BY ORTHO GROUP AND DOES NOT NEED WOUND NURSE AT THIS TIME.
--- NOTE | 2019-12-14 16:01 | NUR ---
pt has participated with therapies and calls for assist as needed. pt is continent of bladder and uses urinal. dressing to lt stump dry and intact with stumpshrinker inplace. prn for pain given with good effect. pt transferrs with assist of 2 gaitbelt and walker with queing in stand piviot.pt remains alert and orientated and has visited with and friend today
[2019-12-14 19:30] VITALS: BP 136/59
--- NOTE | 2019-12-15 01:33 | NUR ---
ASASUMED ARE @ 1934-12/13-SATURDAY.APPEARSA SLEEPING IN BED ON HIS RIGHT SIDE. LEFT STUMP ALREADY UP ON A PILLOW.BED ALARM PUT ON @ 1934.ISOLATION OBSERVED. HOB UP.URINAL W/IN REACH.SEE PAIN MANAGEMENTS @ 2049 & 105.NURSE EMPTIES URINAL @ NIGHT.C PAP PUT ON BY PATIENT IND @ 2199.ON HOURLY ROUNDS.HEAD OF ART DOING ODD HOUR ROUNDS.
--- NOTE | 2019-12-15 05:36 | NUR ---
SLEEPING ALREADY @ 1935 & SLEPT GOOD ALL NIGHT.AWAKENED @ 0200 TO TURN.WAnts C PAP OFF @ 0200.TOOK ALL ORANGE JUICE & TWO PIECES JORGE CRACKERS HS SNACKS.USED URINAL X5 DURING NIGHT.
[2019-12-15 07:30] VITALS: BP 109/77
--- NOTE | 2019-12-15 16:21 | NUR ---
PT HAS WORKED WITH THERAPIES AND CALLS FOR ASSIST NEEDED. PT USES URINAL TO VOID,NO BM TODAY. PRN FOR LT STUMP PAIN GIVEN WITH GOOD EFFECT. DRESSING REMAINS DRY AND INTACT. PT TRANSFERRS WITH MOD ASSIST OF 2 WITH WALKER AND QUEING. PT HAS RESTED IN BED THIS AFTERNOON AND TURNES SIDE TO SIDE WELL. PT REMAINS ALERT AND ORIENTATED.
[2019-12-15 20:45] VITALS: BP 152/70
--- NOTE | 2019-12-16 02:43 | NUR ---
ASSUMED CARE @ 1936-12/14-.AWAKE IN BED W/ HOB UP WATCHING TV.ISOLATION OBSERVED.LEFT STUMP UP ON A PILLOW.LEFT STUMP W/ TUTTLE STUMP FIRE EXTINGUISHER INSTALLER ON. ON HOURLY ROUNDS.URINAL W/IN REACH.AWAKENED @ 199-12/15-SAT-TO TURN TO RIGHT SIDE & TO PUT C PAP ON.PATIENT USUALLY PUTS C PAP BY SELF BUT FELL ASLEEP.
--- NOTE | 2019-12-16 05:48 | NUR ---
SLEPT EARLY @ 2034 & SLEEPING CONTINOUSLY ALL NIGHT.USED URINAL X2.NURSE EMPTIES URINAL @ NIGHT.AWAKENED ONLY TO TURN.TOOK ALL ORANGE JUICE & TWO PACKAGES JORGE CRACKERS HS SNACKS.
[2019-12-16 07:34] VITALS: BP 116/57
--- NOTE | 2019-12-16 16:17 | NUR ---
TY and Dr Coronel attempted to review team conference summary with pt after team conference; pt was in the bathroom at the time, PT awaiting to work further with pt and PT to inform pt of reteam. SW called pt to review team conference summary and plan to reassess length of stay during team conference next Saturday. Pt interested in family training prior to dc. Pt concern for pt cognition/memory if there are any issues and shared that pt has had "small strokes" in the past. Team recommending OP clinic for follow up on prosthesis after dc. SW to continue to follow to assist with safe dc planning.
--- NOTE | 2019-12-16 18:44 | NUR ---
PATIENT ASLEEP IN BED. NO SIGNS OF DISTRESS OBSERVED. ALL SAFETY MEASURES MAINTAINED.
[2019-12-16 19:55] VITALS: BP 144/66
--- NOTE | 2019-12-16 20:50 | NUR ---
AWAKENED FOR HS REASSESSMENT AND MEDICATION PASS. DENIES PAIN. STUMP LOAN REVIEW ANALYST TO LEFT STUMP DRY/INTACT. CALL LIGHT WITHIN REACH. TOOK MEDICATIONS WHOLE ALL AT ONCE WITH WATER. DRANK 6 OZ OF ORANGE JUICE.
--- NOTE | 2019-12-17 05:38 | NUR ---
USED URINAL X 2 DURING THE NIGHT. NO COMPLAINTS OF PAIN. HOURLY ROUNDING IN PROGRESS.
[2019-12-17 08:05] VITALS: BP 125/55
--- NOTE | 2019-12-17 16:11 | NUR ---
pt has worked with therapies and calls for assist as needed. pt transferrs with standing piviot with walker and min assist of 2 with gaitbelt.prn for lt stump pain given with good effect. pt uses urinal with clear yellow urine noted isolation continues. dressing and stump house cleaner dry and intact to lt leg. pt remains alert and orientated and has eaten lunch in dinningroom.
[2019-12-17 20:00] VITALS: BP 129/68
--- NOTE | 2019-12-18 04:23 | NUR ---
ASSESSMENT: PT REMAIN ALERT AND ORIENT TIMES THREE. AT THE BEGINNING OF THE SHIFT PT WAS SITTING IN THE CHAIR. DID TRANSFER TO THE BED WITH SBA. HAD A LARGE/SOFT BM PER BEDPAN. OXYCODONE GIVEN FOR PAIN WITH GOOD RESULTS. BED ALARM SET. PT USES CALL BUTTON APPROPRIATELY. VSS, AFEBRILE. SLOW PROGRESS TOWARDS DC GOALS. WILL CONTINUE TO MONITOR.
[2019-12-18 07:45] VITALS: BP 132/72
[2019-12-18 19:40] VITALS: BP 149/72
--- NOTE | 2019-12-18 19:40 | NUR ---
RESTING QUIETLY IN BED. DENIES DISCOMFORT. CALL LIGHT WITHIN REACH. SNACK PROVIDED.
--- NOTE | 2019-12-19 05:14 | NUR ---
RESTED QUIETLY. NO COMPLAINTS VOICED. USED URINAL X ONE DURING THE NIGHT. HOURLY ROUNDING IN PROGRESS.
[2019-12-19 07:00] VITALS: BP 120/58
--- NOTE | 2019-12-19 16:20 | NUR ---
ASSUMED CARE AT 0730. ALERT ORIENTED PLEASANT AND COOPERATIVE. HX OF Yonatan SLOAN. DRESSING CHANGED YESTERDAY BY ORTHO WEARS STUMP AUTOMOTIVE SERVICE ADVISOR. TRANSFERS WITH MOD ASSIST G BELT FROM W/C TO TOILET WITH RISER. HAD A MOD SOFT FORMED BM DOESNT WANT COLACE THIS IS HIS 3 BM SINCE HE HAD 2 BMS ON TALENT COORDINATOR. TO DR FOR MEALS. PROPELLS SELF IN W/C IN HALLS. IN ISOLATION FOR VRE IN BLOOD. USES CALL LIGHT APPROPRIATELY FOR ASSIST. DENIES PAIN. PARTICIPATING IN THERAPIES.
--- NOTE | 2019-12-19 18:33 | NUR ---
TO FOR SUPPER MEAL. DENIES CONCERNS OR REQUESTS.
[2019-12-19 19:10] VITALS: BP 127/66
--- NOTE | 2019-12-20 05:04 | NUR ---
PT PLEASANT AND COOPERATIVE DURING SHIFT. PT HAS LEFT BKA WITH STUMP SHINKER IN PLACE. DRESSING CHANGED BY ORTHO YESTERDAY. PT USES SLIDE BOARD. ABLE TO STAND, PIVOT AND TRANSFER. PT GIVEN PRN TRAMADOL AND FLEXARIL AT 0030 FOR REPORT OF PAIN. VITAL SIGNS WITHIN NORMAL LIMITS, CALL LIGHT IN REACH. NO ACCUTE CHANGES DURING SHIFT, WILL CONTINUE PLAN OF CARE.
[2019-12-20 08:00] VITALS: BP 132/62
--- NOTE | 2019-12-20 14:50 | NUR ---
ASSUMED CARE AT 0730. ALERT ORIENTED PLEASANT COOPERATIVE. HX OF L BKA. WEARING STUMP BARREL CHARRER HELPER D/I. DID STATE SOME PAIN L STUMP AND GENERALIZED PAIN, MEDICATED WITH XS TYLENOL 2 TABS PO WITH SOME RELIEF STATED. TRANSFERS WITH CGA G BELT FROM BED TO W/C.
--- NOTE | 2019-12-20 16:20 | NUR ---
PT. PROPELLS SELF IN ROOM AND ON UNIT TO DR FOR MEALS. RESTED IN BED MID AFTERNOON SLEEPING AT INTERVALS. REMAINS IN ISOLATION FOR VRE IN THE BLOOD. USES CALL LIGHT APPROPRIATELY FOR ASSISTANCE.
[2019-12-20 21:15] VITALS: BP 136/64
--- NOTE | 2019-12-21 01:18 | NUR ---
ASSUMED CARE @ -SUN.SITS IN W/C IN ROOM WATCHING TV.STUMP FURNACE COMBUSTION ANALYST IN PLACE LEFT STUMP.LEFT STUMP UP WHILE IN W/C.ISOLATION OBSERVED.FOUND IN BED @ 2106 W/ HOB UP.PAtient claims he transfers self to bed.CLAIMS DOES NOT WANT TO CALL NURSE.INSTRUCTED THAT HE STILL HAS TO CALL NURSE DURING TRANSFERS. LEFT STUMP UP ALREADY IN PILLOW @ 2106.URINAL W/IN REACH.SEE PAIN MANAGEMENT @ 2132.GRISEL CARE DONE @ 2199 BEFORE NYSTATIN POWDER APPLIED TO PINK GROINS CANDICE. C PAP PUT ON BY PATIENT IND @ 0000-12/20-MON.ON HOURLY ROUNDS.
[2019-12-21 05:13] LABS: HEMOGLOBIN 9.4 gm/dL (14.0-18.0); MCH 30.5 pg (26.0-34.0); MCHC 33.5 g/dL (28.0-37.0); MPV 6.9 fl. (7.2-11.1); RBC 3.07 mil/uL (4.50-6.00); RDW-CV 15.7 % (10.5-14.5); WBC 3.8 thou/uL (4.0-11.0)
[2019-12-21 05:18] LABS: CREATININE 1.6 mg/dL (0.6-1.3); POTASSIUM 3.6 mmol/L (3.5-5.1)
--- NOTE | 2019-12-21 05:25 | NUR ---
SLEPT LATE SINCE 2300 BUT SLEEPING GOOD ALL NIGHT.USED URINAL X2 DURING NIGHT. TOOK ALL ORANGE JUICE W/ 2 PACKAGES JORGE CRACKERS HS SNACKS.
[2019-12-21 07:54] VITALS: BP 131/69
--- NOTE | 2019-12-21 13:56 | NUR ---
ASSUMED CARE AT 0730. ALERT ORIENTED PLEASANT COOPERATIVE. HX OF L BKA WEARING STUMP CREATIVE WRITING ENGLISH PROFESSOR L STUMP. MEDICATED WITH TYLENOL BEFORE THERAPIES STARTED THIS A.M. TRANSFERS WITH CGA G BELT FROM BED TO W/C AND TO TOILET RISER HAD LARGE BM AND VOIDED AFTER LUNCH IN DR. GREY TATE. 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 USES CALL LIGHT APPROPRIATELY FOR ASSISTANCE. PARTICIPATING IN THERAPIES. VOIDS PER URINAL WHEN IN BED. NYSTATIN POWDER APPLIED TO GROINS AFTER SHOWER TODAY.
[2019-12-21 19:10] VITALS: BP 130/61
--- NOTE | 2019-12-22 00:45 | NUR ---
ASSUMED CARE AT 1930. PATIENT RESTING IN BED. STUMP GAS LINE INSTALLER SUPERVISOR ON STUMP. VOIDS PER URINAL. GIVEN EXTRA STRENGTH APAP AT HS. ON ISOLATION FOR VRE IN BLOOD. HAD HS SNACK OF PEANUT BUTTER AND CRACKERS. ASSISTED WITH POSITIONING NIGHT STAND SO HE COULD ADJUST CPAP PER SELF. APPLIES CPAP WITHOUT DIFF. MOVES IN BED WELL. POSITIONS SELF. HOURLY ROUNDS CONTINUE. BED ALARM ON. CALL LITE IN REACH.
--- NOTE | 2019-12-22 01:23 | NUR ---
C/O STOMACH GAS, BURPING AND POSSIBLE. NAUSEA. STATES HIS CPAP HAS BEEN LIKE A "TORNADO" AND THE AIR VOLUME IS QUITE LOUD WHEN TURNED ON. GIVEN [place]ANTA. PATIENT SITTING ON SIDE OF BED. HAS BELCHED. ALSO STATES HE WILL TRY NOT TO DRINK CARBONATED SPRITE TONIGHT INSTEAD GOING FOR HIS USUAL OF ORANGE JUICE. CALL LITE IN REACH. BED ALARM ON. HOURLY ROUNDS CONTINUE.
--- NOTE | 2019-12-22 03:44 | NUR ---
0133 ASKED TO HAVE BLOOD SUGAR CHECKED. WAS 105. 0220- VOMITED APPROX 40 ML OF GREENISH LIQUID, NO FOOD PARTICLES. POSSIBLY A SMALL AMOUNT OF MYLANTA NOTED. 0227-CALL PLACED TO DR. NAVARRETE PER CHAS 0250- TEMP CHECK 99.3 WAS UNDER MANY COVERS, MOST COVERS REMOVED 0300--CALL RETURNED FROM DR. NAVARRETE. NEW ORDERS RECEIVED. 0331-ZOFRAN AVAILABLE AFTER CALLING [facility] TO REPORT PATIENT C/O N/V 0340-- 98.7. ONE BLANKET PUT ON PATIENT PER REQUEST. PATIENT ABLE TO PULL SELF UP IN BED USING HANDLES IN HOB AND IS TRYING TO SLEEP. HOURLY ROUNDS CONTINUE. BED ALARM ON. CALL LITE IN REACH.
--- NOTE | 2019-12-22 04:15 | NUR ---
DURING ROUNDS, PATIENT STATES, "IT'S QUIETING DOWN." IN REGARDS TO HIS NAUSEA. LYING ON BACK. REFUSES TO TURN. HOURLY ROUNDS CONTINUE. BED ALARM ON. CALL LITE IN REACH
--- NOTE | 2019-12-22 05:51 | NUR ---
RESTING AFTER 0400. REFUSES TURNS. NO FURTHER C/O N/V OR UPSET STOMACH. VOIDS PER URINAL. NO C/O PAIN. HOURLY ROUNDS CONTINUE. BED ALARM ON. CALL LITE IN REACH.
[2019-12-22 07:58] VITALS: BP 145/68
--- NOTE | 2019-12-22 16:46 | NUR ---
ASSUMMED CARE OF PT AT 0730, PT ALERT AND ORIENTED, PT C/O SLIGHT NAUSEA, NO EMESIS, MEDICATED X 1 FOR NAUSEA THIS SHIFT, DID TOLERATE MEALS, C/O PAIN IN LEFT STUMP, MEDICATED PER ORDER, VOIDS PER URIANL/TOILET, HAS HAD LOOSE STOOLS X 2 THIS SHIFT,DRSY INTACT TO LEFT STUMP, PARTICPATED IN ALL THERAPIES, HOURLY ROUNDING COMPLETED, ASSESSMENT COMPLETE, WILL CONTINUE TO MONITOR.
--- NOTE | 2019-12-22 17:13 | NUR ---
CM SPOKE TO THE PT TO DISCUSS ANY QUESTIONS OR CONCERNS FOR TOMORROWS TEAM CONFRENCE MEETING. PT INFORMS THAT HE HAS NO QUESTIONS OR CONCERNS AT THIS TIME, BUT WOULD LIKE EVERYONE TO KNOW THAT HE IS 'VERY PLEASED WITH FRANCIS AND ESTHELA, BECAUSE THEY DO GOOD WORK. I KNOW THAT I AM GETTING STRONGER, AND AM PLEASED WITH MY PROGRESS'. CM WILL REMAIN AVAILABLE TO ASSIST AND FOLLOW NEEDED.
[2019-12-22 19:05] VITALS: BP 112/61
--- NOTE | 2019-12-22 20:40 | NUR ---
RESTING QUIETLY IN BED AND WATCHING TV. STUMP PARTS DELIVERY DRIVER DRY/INTACT. REDNESS NOTED IN GROIN AREA. MYCOSTATIN POWDER APPLIED PER ORDER. DENIES DISCOMFORT. SNACK PROVIDED. DENIES NAUSEA. CALL LIGHT WITHIN REACH.
--- NOTE | 2019-12-23 05:43 | NUR ---
HAD 2 MODERATE SOFT BM'S DURING THE NIGHT. GRISEL CARE GIVEN. USED URINAL DURING THE NIGHT. REFUSES TO REPOSITION MOST OF THE TIME. HOURLY ROUNDING IN PROGRESS.
[2019-12-23 09:01] VITALS: BP 115/61
--- NOTE | 2019-12-23 17:27 | NUR ---
SW met with pt to review team conference summary and plan for pt to remain on inpt rehab unit one more week with team to reassess pt length of stay during team conference next Saturday with likely dc home with after team on 12/29. Pt in agreement with plan. SW to discuss with pt as well to ensure assist level available and whether or not FT would be necessary. SW to continue to follow to assist with safe dc planning.
--- NOTE | 2019-12-23 18:10 | NUR ---
PT HAS PARTICIPATED WITH THERAPIES AND CALLS FOR ASSIST NEEDED. PT USES URINAL AND IS CONTINENT. PT TRANSFERRS WITH ASSIST OF 1 WITH GAITBELT AND WALKER FROM CHAIR TO BED. PRN FOR LT STUMP PAIN GIVEN WITH GOOD EFFECT.DRESSING TO LT STUMP DRY AND INTACT WITH [employer] HELPER ON.PT REMAINS ALERT AND ORIENTATED.
[2019-12-23 21:00] VITALS: BP 113/64
--- NOTE | 2019-12-24 01:16 | NUR ---
ASSUMED CARE @ 1954-.APPEARS SLEEPING ON HIS BACK W/ HOB UP & LEFT STUMP UP ON A PILLOW.STUMP IT SYSTEMS ANALYST IN PLACE.ISOLATION OBSERVED.BED ALARM PUT ON @ 1954.URINAL W/IN REACH.CLAIMS C PAP NEEDS ADJUSTING-SO UNABLE TO USE TONIGHT.ON HOURLY ROUNDS.
--- NOTE | 2019-12-24 05:21 | NUR ---
SLEEPING EARLY SINCE 1954 & SLEPT GOOD ALL NIGHT.USED URINAL X2.NURSE EMPTIES URINAL @ NIGHT.TOOK ALL ORANGE JUICE HS SNACK.
[2019-12-24 08:00] VITALS: BP 111/76
--- NOTE | 2019-12-24 18:13 | NUR ---
ASSUMMED CARE OF PT AT 0730, PT ALERT AND ORIENTED, PT TRANSFERS WITH SBA, GB WALKER STAND PIVOT/SLIDE, PT C/O PAIN IN LEFT STUMP, MEDICATED PER ORDER, DRESSING INTACT, VOIDS PER URINAL, BM X 1 THIS SHIFT, TAKING FOOD AND FLUIDS WELL, PARTICIPATED IN ALL THERAPIES, HOURLY ROUNDING COMPLETED, ASSESSMENT COMPLETE, WILL CONTINUE TO MONITOR.
[2019-12-24 20:37] VITALS: BP 123/59
--- NOTE | 2019-12-25 01:28 | NUR ---
ASSUMED CARE @ 1909-.APPEARS SLEEPING W/ HOB UP & LEFT STUMP UP ON A PILLOW.ISOLATION OBSERVED.BED ALARM ALREADY ON @ 1909.BRP PER W/C @ 2029.NWB LEFT LE.NOT USING C PAP.NEEDS FIXED.ON HOURLY ROUNDS.SUPERVISOR WORD PROCESSING DOING ODD HOUR ROUNDS.URINAL W/IN REACH.
--- NOTE | 2019-12-25 05:22 | NUR ---
SLEPT EARLY @ 1910 & SLEEPING GOOD ALL NIGHT.TOOK ALL 120 ML ORANGE JUICE & 2 PACKAGES JORGE CRACKERS HS SNACKS.BRP X1 FOR LArge bm & VOID.USED URINAL X 2.PIVOT TRANSFER SBA ONLY.ORTHO TO CHANGE DRSG TODAY-12/24-SATURDAY.
[2019-12-25 09:21] VITALS: BP 128/68
--- NOTE | 2019-12-25 14:52 | NUR ---
SW tried to contact pt to review dc planning for Friday 12/29 and there was no answer. SW to continue to follow to assist with safe dc planning.
--- NOTE | 2019-12-25 16:51 | NUR ---
ASSUMMED CARE OF PT AT 07, PT ALERT AND ORIENTED, TRANSFERS WITH ASSIST OF 1, GB WITH A STAND PIVOT, LARGE BM X 1 THIS SHIFT, VOIDS PER URINAL/TOILET, PT DENIES NEED FOR PAIN MED THIS SHIFT, ORTHO DID DRSG CHANGE TO LEFT STUMP AND STATED TO LEAVE IN PLACE UNTIL SEEN BY ORTHO, STUMP BACTERIOLOGIST SOIL ON, TAKING FOOD AND FLUIDS WELL, UP IN CHAIR ALL SHIFT, PT HAS MANY QUESTIONS REGARDING DISCHARGE PLANS FOR NEXT SATURDAY, PT WOULD LIKE TO TRANSITION TO A DIFFERNET BLOOD THINNER AND EXPLAINED TO PT HE NEEDED TO DISCUSS THAT WITH PHYSICIAN, PARTICIPATED IN ALL THERAPIES, HOURLY ROUNDING COMPLETED, ASSESSMENT COMPLETE, WILL CONTINUE TO MONITOR.
[2019-12-25 20:30] VITALS: BP 129/67
--- NOTE | 2019-12-25 20:50 | NUR ---
IN SEMI-FOWLERS WATCHING TV. IN GOOD SPIRITS. URINAL AND CALL LIGHT WITHIN REACH. SNACK PROVIDED. TOOK MEDICATIONS WHOLE WITH WATER. DENIES PAIN. STUMP EXHAUST EQUIPMENT OPERATOR DRY/INTACT.
--- NOTE | 2019-12-26 05:29 | NUR ---
TYLENOL GIVEN AT ABOUT MIDNIGHT FOR COMPLAINT OF SORENESS IN HANDS WITH RELIEF OBTAINED. INCONTINENT OF URINE X ONE. URINE SPILL ONTO SHIRT AND SHORTS AND SHEETS. GRISEL CARE GIVEN. HOURLY ROUNDING IN PROGRESS.
[2019-12-26 09:00] VITALS: BP 139/85
--- NOTE | 2019-12-26 16:48 | NUR ---
pt has been up to w/c and transferrs squat piviot with gaitbelt. dressing intact to lt stump with stump sanitation truck driver on. prn for phantom pain given this afternoon with good effect. pt continent of b+b. pt is alert and orientated.
[2019-12-26 20:10] VITALS: BP 105/51
[2019-12-26 20:33] VITALS: BP 132/60
--- NOTE | 2019-12-26 20:50 | NUR ---
SITTING UP IN WHEELCHAIR WATCHING TV. DENIES DISCOMFORT. STUMP FIRST ASSISTANT INTACT. CALL LIGHT WITHIN REACH. SNACK PROVIDED. TOOK MEDICATIONS WHOLE WITH WATER.
--- NOTE | 2019-12-27 05:59 | NUR ---
USED URINAL X 3 DURING THE NIGHT. GIVEN TYLENOL AT 2203 FOR COMPLAINT OF ARTHRITIC PAIN IN HANDS AND PHANTOM PAIN IN LEFT STUMP WITH RELIEF. HOURLY ROUNDING IN PROGRESS.
[2019-12-27 08:40] VITALS: BP 137/69
--- NOTE | 2019-12-27 18:12 | NUR ---
PT TRANSFERRS TO W/C WITH SBA,SQUAT TRANSFERR AND DOES WELL. PT CONTINENT OF B+B AND USES URINAL OR TOILET FOR BM.PT REMAINS ALERT AN ORIENTATED AND LOOKING FORWARD TO GOING HOME .
--- NOTE | 2019-12-27 20:15 | NUR ---
SITTING UP IN BED WATCHING TV. DENIES PAIN. IN GOOD SPIRITS. MAKING JOKES. MANAGER [employer]OS[employer]ICE TO LEFT STUMP INTACT. CALL LIGHT AND URINAL WITHIN REACH. SNACK PROVIDED
[2019-12-27 20:17] VITALS: BP 135/63
--- NOTE | 2019-12-28 06:09 | NUR ---
ULTRAM GIVEN THIS MORNING FOR COMPLAINT OF PAIN IN HANDS AND RIGHT STUMP. UP TO THE TOILET DURING THE NIGHT AND HAD A BM. HOURLY ROUNDING IN PROGRESS.
[2019-12-28 08:00] VITALS: BP 126/69
--- NOTE | 2019-12-28 14:45 | NUR ---
ASSUMED CARE AT 0730. ALERT ORIENTED PLEASANT COOPERATIVE. HX OF L BKA STUMPSHRINKER IN PLACE. TRANSFERS WITH SBA G BELT FROM W/C TO TOILET. MEDICATED X 1 FOR L STUMP PAIN WITH XS TYLENOL WITH RELIEF STATED. USES CALL LIGHT APPROPRIATELY FOR ASSISTANCE. PARTICIPATING IN THERAPIES THROUGHOUT THE DAY, PROPELLS SELF IN W/C IN ADORNO AND TO THERAPIES. IN CONTACT ISOLATION HX OF VRE IN THE BLOOD. APPETITE GOOD FEEDS SELF.
[2019-12-28 19:30] VITALS: BP 132/63
--- NOTE | 2019-12-29 05:09 | NUR ---
ASSUMED CARES AT 1920. ALERT AND ORIENTED. PLEASANT. TYLENOL GIVEN FOR LEFT STUMP PAIN. NWB LLE. USED URINAL. HS SNACK GIVEN. ON CONTACT ISOLATION FOR VRE. SLEPT BETTER TONIGHT. CALL LIGHT IN REACH AND BED ALARM ON.
[2019-12-29 08:00] VITALS: BP 120/65
--- NOTE | 2019-12-29 12:27 | NUR ---
FAXED REFERRAL TO [facility]. CONFIRMED WITH LISA/INTAKE THAT THEY WOULD BE ABLE TO SEE THE PATIENT THIS WEEK WHEN DISCHARGED AND WILL REVIEW. [facility] [phone]; [phone]
--- NOTE | 2019-12-29 13:43 | NUR ---
SW called pt to discuss upcoming team conference tomorrow and dc tomorrow with family training at 1 pm and home with and HH services through pt/family preference of [facility]. Pt in agreement with plan and just wanted to make sure she would receive home medication list at dc. SW to continue to follow to assist with finalizing safe dc plan.
--- NOTE | 2019-12-29 15:15 | NUR ---
ASSUMED CARE AT 0730. ALERT ORIENTED PLEASANT COOPERATIVE. HX OF L BKA STUMPSHRINKER IN PLACE. DENIES PAIN OR CONCERNS PROPELLS SELF IN W/C TRANSFERS FROM BED TO W/C AND TO TOILET SBA G BELT. PARTICIPATING IN THERAPIES THROUGHOUT THE DAY. IN CONTACT ISOLATION HX OF VRE IN THE BLOOD.
[2019-12-29 19:10] VITALS: BP 125/60
[2019-12-30 04:16] VITALS: BP 126/69
[2019-12-30 04:18] VITALS: BP 126/69
[2019-12-30 04:22] VITALS: BP 126/69
--- NOTE | 2019-12-30 04:59 | NUR ---
ASSUMED CARES AT 1915. ALERT AND ORIENTED. PLEASANT. TYLENOL GIVEN FOR LEFT STUMP PAIN. NWB LLE. CONTACT ISOLATION. USED URINAL. SLEPT WELL. CALL LIGHT IN REACH AND BED ALARM ON.
[2019-12-30 08:22] VITALS: BP 180/63
[2019-12-30] MEDS ORDERED: TRAMADOL 50 MG50 MG PO (10:24)
--- NOTE | 2019-12-30 11:08 | NUR ---
FAXED DISCHARGE ORDERS TO [facility]. [phone]; [phone]
[2019-12-30 13:04] VITALS: BP 126/69
--- NOTE | 2019-12-30 13:09 | NUR ---
Team conference held today. Pt to dc home with after family training. HH services to follow with pt/family preference of [facility].
--- NOTE | 2019-12-30 13:34 | NUR ---
ASSUMMED CARE OF PT AT 0730, PT ALERT AND ORIENTED, TRANSFERS WITH SUPERVISION GB, WALKER, C/O MILD STUMP PAIN, DENIED NEED FOR FURTHER PAIN MEDICATION, TAKING FOOD AND FLUIDS WELL, VOIDS PER URINAL, BM X 1 ON TOILET, DRESSING AND STUMP CANOE BUILDER INTACT TO LEFT STUMP, PARTCIPATED IN ALL THERAPIES, HOURLY ROUNDING COMPLETED, ORDERS OBTAINED FOR DISCHARGE, PT AND INSTRUCTED ON FOLLOW UP APPTS, WHEN TO CALL PHYSICIAN, MEDICATIONS, HOME HEALTH, ACTIVITY, FALL PRECAUTIONS, VOICED UNDERSTANDING OF INSTRUCTIONS, PT DISCHARGED WITH BELONGINGS TO MAIN ENTRANCE WITH PHYSICAL THERAPIST TO SHOW SPOUSE CAR TRANSFER.
[2019-12-30 17:38] VITALS: BP 126/69
== END 2019-12-30 13:40 | disposition home health service (06) | DRG 562 ==
LOC: M.REH 15:53
PROVIDERS: Family Medicine; Internal Medicine; ADMIT Physical Medicine & Rehabilitation
DX: S82.892A Other fracture of left lower leg, initial encounter for closed fracture (principal); A41.9 Sepsis, unspecified organism; G92 Toxic encephalopathy; M86.8X7 Other osteomyelitis, ankle and foot; L03.116 Cellulitis of left lower limb; D68.59 Other primary thrombophilia; I13.0 Hypertensive heart and chronic kidney disease with heart failure and stage 1 through stage 4 chronic kidney disease, or unspecified chronic kidney disease; I50.32 Chronic diastolic (congestive) heart failure; E11.69 Type 2 diabetes mellitus with other specified complication; D64.9 Anemia, unspecified; I48.0 Paroxysmal atrial fibrillation; E11.42 Type 2 diabetes mellitus with diabetic polyneuropathy; E11.22 Type 2 diabetes mellitus with diabetic chronic kidney disease; N18.3 Chronic kidney disease, stage 3 (moderate); G47.33 Obstructive sleep apnea (adult) (pediatric); M10.9 Gout, unspecified; R25.1 Tremor, unspecified; I27.20 Pulmonary hypertension, unspecified; I34.0 Nonrheumatic mitral (valve) insufficiency; F32.9 Major depressive disorder, single episode, unspecified; E03.9 Hypothyroidism, unspecified; Z89.512 Acquired absence of left leg below knee; Z85.46 Personal history of malignant neoplasm of prostate; Z90.49 Acquired absence of other specified parts of digestive tract; X58.XXXA Exposure to other specified factors, initial encounter; Y93.89 Activity, other specified; Y92.89 Other specified places as the place of occurrence of the external cause; Y99.8 Other external cause status; Z83.3 Family history of diabetes mellitus; Z82.61 Family history of arthritis; Z82.49 Family history of ischemic heart disease and other diseases of the circulatory system

== ENCOUNTER → 2020-05-13 | Outpatient (CLI) | payer OTHER ==
[~2020-05-13] MED LIST changes: +OXYCODONE HCL 55 MG PO; +PAIN RELIEVER500 MG PO; +TRAMADOL 50 MG50 MG PO
[2020-05-13 11:03] LABS: CALCIUM 8.1 mg/dL (8.5-10.1); CREATININE 1.7 mg/dL (0.6-1.3); POTASSIUM 4.3 mmol/L (3.5-5.1)
== END ==
LOC: M.LAB 10:29
PROVIDERS: ATTEND Internal Medicine Cardiovascular Disease
DX: I48.0 Paroxysmal atrial fibrillation (principal); I10 Essential (primary) hypertension

== ENCOUNTER 2020-07-16 16:34 | Inpatient (IN) | payer OTHER ==
[~2020-07-16] VITALS: Ht 175.3 cm; Wt 85.7 kg
[2020-07-16 17:00] VITALS: BP 116/62
[2020-07-16] MEDS ORDERED: SERTRALINE HCL100 MG PO (17:07)
[2020-07-16] MEDS ORDERED: OXYBUTYNIN 5 MG5 M2 PO (17:07)
[2020-07-16] MEDS ORDERED: FLECAINIDE ACET50 M2 PO (17:07)
[2020-07-16 17:46] LABS: ABSOLUTE EOSINOPHILS 0.2 thou/uL (0.0-0.7); ABSOLUTE MONOCYTES 0.4 thou/uL (0.0-1.2); ABSOLUTE NEUTROPHILS 4.3 thou/uL (1.6-8.1); BASOPHILS 0.7 %; EOSINOPHILS 3.9 %; HEMATOCRIT 34.2 % (42.0-52.0); HEMOGLOBIN 11.1 gm/dL (14.0-18.0); LYMPHOCYTES 17.3 %; MCHC 32.4 g/dL (28.0-37.0); MCV 89.4 fL (80.0-100.0); MPV 7.1 fl. (7.2-11.1); NUCLEATED RBCS 0 /100WBC; PLATELET COUNT* 287 thou/uL (150-400); POLYS 71.1 %; RBC 3.82 mil/uL (4.50-6.00); RDW-CV 17.6 % (10.5-14.5)
[2020-07-16 17:58] LABS: CALCIUM 8.3 mg/dL (8.5-10.1); CREATININE 2.1 mg/dL (0.6-1.3); POTASSIUM 4.5 mmol/L (3.5-5.1)
[2020-07-16 18:00] LABS: APTT 35.7 Seconds (25.0-31.3); INR 1.1; PROTIME 11.6 Seconds (9.20-11.50)
[2020-07-16 18:09] LABS: ALBUMIN 2.9 g/dL (3.4-5.0); TOTAL BILIRUBIN 0.2 mg/dL (<0.1-1.0); TOTAL PROTEIN 6.6 g/dL (6.4-8.2)
[2020-07-16 18:37] LABS: URINE BILIRUBIN NEGATIVE (Negative); URINE BLOOD 3+ (Negative); URINE CLARITY CLOUDY; URINE COLOR YELLOW; URINE GLUCOSE-RANDOM NEGATIVE (Negative); URINE KETONES NEGATIVE (Negative); URINE LEUKOCYTES-REFLEX 3+ (Negative); URINE NITRITE-REFLEX NEGATIVE (Negative); URINE PROTEIN 1+ (Negative); URINE SPECIFIC GRAVITY 1.025 (1.005-1.030); URINE UROBILINOGEN 0.2 E.U./dl (0.2-1.0)
[2020-07-16 19:03] LABS: SQUAMOUS NONE SEEN /LPF (0-3)
[2020-07-16 19:04] LABS: BACTERIA-REFLEX >30 Many /HPF (None Seen); CASTS None Seen /LPF (None Seen); CRYSTALS None Seen /LPF (None Seen); MUCUS None Seen strn/LPF (None Seen); URINE RBC >20 Many /HPF (0-2); URINE WBC-REFLEX >25 Many /HPF (0-5); WBC CLUMPS Many (None Seen)
[2020-07-16 20:45] VITALS: BP 150/68
[2020-07-16 21:25] VITALS: BP 153/80
[2020-07-17 08:45] VITALS: BP 164/66
--- NOTE | 2020-07-17 10:35 | EKG ---
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: CCD : 1945 Requested By: Malini Garcia Order Number: [id number] MD: Ger Barajas Measurements Intervals [place] Rate: 50 P: 25 IL: 174 QRS: 14 QRSD: 163 T: 7 QT: 553 QTc: 505 Interpretive Statements Sinus bradycardia Right bundle branch block Compared to ECG 12/05/2019 18:11:08 Ventricular premature complex(es) no longer present Short [place] interval no longer present Electronically Signed On 07-17-2020 10:35:17 CDT by Ger Barajas [email or web address] <ELECTRONICALLY SIGNED> By: Ger Barajas MD, FACC 07/17/20 1035 [id number] 1823 Ger Barajas MD, FACC /EPI
[2020-07-17 16:16] VITALS: BP 171/81
[2020-07-17 20:06] VITALS: BP 164/63
[2020-07-18 03:41] LABS: ABSOLUTE EOSINOPHILS 0.2 thou/uL (0.0-0.7); ABSOLUTE MONOCYTES 0.3 thou/uL (0.0-1.2); ABSOLUTE NEUTROPHILS 3.2 thou/uL (1.6-8.1); BASOPHILS 0.8 %; EOSINOPHILS 3.9 %; HEMATOCRIT 30.6 % (42.0-52.0); HEMOGLOBIN 9.9 gm/dL (14.0-18.0); LYMPHOCYTES 20.8 %; MCH 28.8 pg (26.0-34.0); MCHC 32.5 g/dL (28.0-37.0); MCV 88.5 fL (80.0-100.0); MONOCYTES 7.3 %; MPV 6.8 fl. (7.2-11.1); NUCLEATED RBCS 0 /100WBC; PLATELET COUNT* 230 thou/uL (150-400); POLYS 67.2 %; RBC 3.45 mil/uL (4.50-6.00); RDW-CV 17.6 % (10.5-14.5); WBC 4.8 thou/uL (4.0-11.0)
[2020-07-18 04:05] LABS: CALCIUM 8.3 mg/dL (8.5-10.1); CREATININE 1.7 mg/dL (0.6-1.3); POTASSIUM 4.5 mmol/L (3.5-5.1)
[2020-07-18 08:00] VITALS: BP 1611/99
[2020-07-18 16:38] VITALS: BP 208/101
[2020-07-18 20:30] VITALS: BP 164/92
[2020-07-19 02:06] LABS: GLYCOHEMOGLOBIN (HGB A1C) 6.6 % (4.8-5.6)
[2020-07-19 03:56] LABS: ABSOLUTE EOSINOPHILS 0.1 thou/uL (0.0-0.7); ABSOLUTE MONOCYTES 0.4 thou/uL (0.0-1.2); BASOPHILS 0.4 %; EOSINOPHILS 1.9 %; HEMATOCRIT 33.9 % (42.0-52.0); LYMPHOCYTES 17.2 %; MCH 28.9 pg (26.0-34.0); MCHC 32.4 g/dL (28.0-37.0); MCV 89.1 fL (80.0-100.0); MONOCYTES 8.1 %; MPV 7.5 fl. (7.2-11.1); NUCLEATED RBCS 0 /100WBC; PLATELET COUNT* 232 thou/uL (150-400); POLYS 72.4 %; RBC 3.81 mil/uL (4.50-6.00); RDW-CV 17.4 % (10.5-14.5); WBC 5.5 thou/uL (4.0-11.0)
[2020-07-19 04:05] LABS: ALBUMIN 2.6 g/dL (3.4-5.0); CALCIUM 8.7 mg/dL (8.5-10.1); CREATININE 1.9 mg/dL (0.6-1.3); POTASSIUM 4.1 mmol/L (3.5-5.1); TOTAL BILIRUBIN 0.3 mg/dL (<0.1-1.0); TOTAL PROTEIN 6.2 g/dL (6.4-8.2)
[2020-07-19 08:05] VITALS: BP 157/80
[2020-07-19 16:00] VITALS: BP 148/83
[2020-07-20] VITALS (7 sets, daily range): BP systolic 152–154; BP diastolic 79–80
[2020-07-20 10:33] LABS: CALCIUM 8.8 mg/dL (8.5-10.1); CREATININE 1.7 mg/dL (0.6-1.3); POTASSIUM 3.5 mmol/L (3.5-5.1)
[2020-07-20] MEDS ORDERED: LANTUS SUBQ (13:21)
[2020-07-20] MEDS ORDERED: AMPICILLIN TRI500 MG PO (13:24)
== END 2020-07-20 18:34 | disposition home health service (06) | DRG 638 ==
LOC: M.ERS 16:34 → M.ORTHSURG 19:37 → M.TBA-ER 19:37 → M.ORTHSURG 20:50
PROVIDERS: Internal Medicine; Nurse Practitioner Family; ADMIT Internal Medicine; ATTEND Internal Medicine
DX: E11.649 Type 2 diabetes mellitus with hypoglycemia without coma (principal); E44.0 Moderate protein-calorie malnutrition; N30.00 Acute cystitis without hematuria; G92 Toxic encephalopathy; N17.9 Acute kidney failure, unspecified; E11.42 Type 2 diabetes mellitus with diabetic polyneuropathy; E11.22 Type 2 diabetes mellitus with diabetic chronic kidney disease; G47.33 Obstructive sleep apnea (adult) (pediatric); B95.2 Enterococcus as the cause of diseases classified elsewhere; I48.0 Paroxysmal atrial fibrillation; N18.30 Chronic kidney disease, stage 3 unspecified; I12.9 Hypertensive chronic kidney disease with stage 1 through stage 4 chronic kidney disease, or unspecified chronic kidney disease; M10.9 Gout, unspecified; M19.90 Unspecified osteoarthritis, unspecified site; E03.9 Hypothyroidism, unspecified; E86.0 Dehydration; F32.9 Major depressive disorder, single episode, unspecified; Z85.46 Personal history of malignant neoplasm of prostate; Z90.49 Acquired absence of other specified parts of digestive tract; Z68.27 Body mass index [BMI] 27.0-27.9, adult; Z92.3 Personal history of irradiation; Z79.4 Long term (current) use of insulin; Z79.01 Long term (current) use of anticoagulants; Z79.899 Other long term (current) drug therapy

== ENCOUNTER 2020-09-08 18:05 | Inpatient (IN) | payer OTHER ==
[~2020-09-08] VITALS: Ht 175.3 cm; Wt 83.9 kg
[~2020-09-08 18:05] MED LIST changes: +AMPICILLIN TRI500 MG PO; +FLECAINIDE ACET50 M2 PO; +OXYBUTYNIN 5 MG5 M2 PO; +SERTRALINE HCL100 MG PO
[2020-09-08 18:07] VITALS: BP 155/72
[2020-09-08 18:22] LABS: URINE BILIRUBIN NEGATIVE (Negative); URINE BLOOD 3+ (Negative); URINE CLARITY CLOUDY; URINE COLOR YELLOW; URINE GLUCOSE-RANDOM NEGATIVE (Negative); URINE KETONES NEGATIVE (Negative); URINE PROTEIN 2+ (Negative); URINE SPECIFIC GRAVITY 1.015 (1.005-1.030); URINE UROBILINOGEN 0.2 E.U./dl (0.2-1.0)
[2020-09-08 18:24] LABS: URINE LEUKOCYTES-REFLEX 3+ (Negative); URINE NITRITE-REFLEX POSITIVE (Negative)
[2020-09-08 18:37] LABS: BACTERIA-REFLEX >30 Many /HPF (None Seen); URINE WBC-REFLEX >25 Many /HPF (0-5)
[2020-09-08 18:38] LABS: CASTS None Seen /LPF (None Seen); SQUAMOUS NONE SEEN /LPF (0-3); URINE RBC 3-10 Few /HPF (0-2)
[2020-09-08 18:39] LABS: CRYSTALS None Seen /LPF (None Seen)
[2020-09-08 18:52] LABS: ABSOLUTE LYMPHOCYTES 0.6 thou/uL (0.8-5.3); ABSOLUTE MONOCYTES 0.3 thou/uL (0.0-1.2); ABSOLUTE NEUTROPHILS 2.8 thou/uL (1.6-8.1); BASOPHILS 0.3 %; EOSINOPHILS 1.2 %; HEMOGLOBIN 10.5 gm/dL (14.0-18.0); LYMPHOCYTES 15.2 %; MCH 28.4 pg (26.0-34.0); MCV 88.8 fL (80.0-100.0); MONOCYTES 8.3 %; MPV 7.9 fl. (7.2-11.1); NUCLEATED RBCS 0 /100WBC; PLATELET COUNT* 202 thou/uL (150-400); RBC 3.71 mil/uL (4.50-6.00); WBC 3.7 thou/uL (4.0-11.0)
[2020-09-08 19:05] LABS: CALCIUM 7.9 mg/dL (8.5-10.1); CREATININE 2.2 mg/dL (0.6-1.3); POTASSIUM 4.3 mmol/L (3.5-5.1)
[2020-09-08 19:15] LABS: ALBUMIN 2.6 g/dL (3.4-5.0); TOTAL BILIRUBIN 0.2 mg/dL (<0.1-1.0)
[2020-09-08 21:01] VITALS: BP 157/64
[2020-09-08 22:00] VITALS: BP 174/75
[2020-09-09] VITALS: BP 157/70
--- NOTE | 2020-09-09 05:30 | NUR ---
PATIENT ARRIVED ON FLOOR FROM ER AT ABOUT 2100. PATIENT ADMISSION HISTORY AND ASSESSMENT WAS COMPLETED CHARTED. IV FLUIDS WERE STARTED AT 100 ML/HR. PATIENT HAD A TEMP OF 103.0 DR BROWN WAS NOTIFIED ORDER FOR TYLENOL RECEIVED AND GIVEN. TEMP AT MIDNIGHT CAME DOWN TO 98.7 AND WAS 99.6 THIS MORNING. WILL CONTINUE TO MONITOR.
[2020-09-09 08:11] LABS: HEMATOCRIT 29.5 % (42.0-52.0); HEMOGLOBIN 9.6 gm/dL (14.0-18.0); MCH 28.5 pg (26.0-34.0); MCHC 32.4 g/dL (28.0-37.0); MCV 87.9 fL (80.0-100.0); MPV 8.1 fl. (7.2-11.1); RBC 3.36 mil/uL (4.50-6.00); RDW-CV 16.3 % (10.5-14.5); WBC 3.9 thou/uL (4.0-11.0)
[2020-09-09 08:14] LABS: CREATININE 2.1 mg/dL (0.6-1.3); POTASSIUM 3.6 mmol/L (3.5-5.1)
[2020-09-09 08:30] VITALS: BP 107/65
[2020-09-09 08:47] LABS: CALCIUM 7.7 mg/dL (8.5-10.1); POTASSIUM 3.7 mmol/L (3.5-5.1)
[2020-09-09 08:50] LABS: MAGNESIUM 1.7 mg/dL (1.8-2.4)
--- NOTE | 2020-09-09 12:32 | NUR ---
CM spoke with at bedside, Pt sound asleep. Pt is normally independent, states that Pt has gotten weaker over the past few days. Pt is current with [facility] and wants to resume at [place]. Pt has a walker and wc at home for mobility. Pt has a left leg prothesis. Hx of SNF at [facility], [place], operated by [facility]. Hx of ARU here at [facility]. CM to fax dc orders, facesheet and H&P to [facility] at dc [phone].
[2020-09-09 12:39] VITALS: BP 107/65
[2020-09-09 15:30] VITALS: BP 168/81
[2020-09-09 16:40] VITALS: BP 133/63
--- NOTE | 2020-09-09 18:00 | EKG ---
[place] [address] ELECTROCARDIOGRAM REPORT Name: TRINI JULIEN Room: [address] ADM IN M.R.#: [id number] Admission: 09/08/20 Attend Phys: Epifanio Greene, Discharge: Date of : 47 Date of Service: 09/08/20 1809 Report #: [id number] THIS REPORT FOR: //name// [facility] ED Test Date: 2020-09-08 Test Time: 18:09:42 Pat Name: TRINI JULIEN Department: Room: [facility] Gender: M Surveillance Officer: CCD : 1945 Requested By: Charanjit Elliott Order Number: [id number] MD: Raymon Guerrier Measurements Intervals [place] Rate: 89 P: 41 MI: 185 QRS: 84 QRSD: 160 T: -6 QT: 419 QTc: 510 Interpretive Statements Sinus rhythm Right bundle branch block Baseline wander in lead(s) V2 Compared to ECG 07/16/2020 18:23:29 Sinus bradycardia no longer present Electronically Signed On 09-09-2020 18:00:02 SUPERVISOR TITLE by Raymon Guerrier [email or web address] <ELECTRONICALLY SIGNED> By: Raymon Guerrier MD, FACC 09/09/20 1800 180 180 Raymon Guerrier MD, FAC /EPI
--- NOTE | 2020-09-09 18:39 | NUR ---
PATIENT ALERT AND ORIENTED X 4. VITAL SIGNS STABLE ON ROOM AIR. AFEBRILE THIS EVENING. IV PATENT WITH FLUIDS INFUSING. ANTIBIOTICS GIVEN PER MAR. DENIES PAIN AND NAUSEA AT THIS TIME. TURNED AND REPOSITIONED EVERY TWO HOURS. FALL PRECAUTIONS IN PLACE AND BED ALARM ON. HOURLY ROUNDS MAINTAINED THROUGHOUT THE SHIFT. CALL LIGHT WITHIN REACH. NURSING WILL CONTINUE TO MONITOR.
[2020-09-09 19:45] VITALS: BP 132/66
[2020-09-10 04:21] LABS: HEMATOCRIT 28.9 % (42.0-52.0); HEMOGLOBIN 9.3 gm/dL (14.0-18.0); MCH 28.6 pg (26.0-34.0); MCHC 32.2 g/dL (28.0-37.0); MCV 88.7 fL (80.0-100.0); MPV 7.9 fl. (7.2-11.1); RBC 3.26 mil/uL (4.50-6.00); RDW-CV 16.5 % (10.5-14.5); WBC 3.3 thou/uL (4.0-11.0)
--- NOTE | 2020-09-10 04:25 | NUR ---
PT A&O, AFEBRILE. MEDS GIVEN ORDERED. TYLENOL GIVEN FOR CHRONIC PAIN. PT USES URINAL TO VOID. PT SLEPT MOST OF THE NIGHT. CALL LIGHT WIValidus MARILIA. WILL CONTINUE TO MONITOR.
[2020-09-10 04:42] LABS: CALCIUM 7.7 mg/dL (8.5-10.1); CREATININE 2.1 mg/dL (0.6-1.3); MAGNESIUM 1.9 mg/dL (1.8-2.4); POTASSIUM 3.5 mmol/L (3.5-5.1)
[2020-09-10 08:08] VITALS: BP 158/74
[2020-09-10 16:04] VITALS: BP 168/84
--- NOTE | 2020-09-10 17:34 | NUR ---
IVF INFUSING. PT INCONT OF URINE. PRN GRISEL CARE AND PAD CHANGES DONE. DENIES PAIN.
[2020-09-10 20:30] VITALS: BP 174/82
--- NOTE | 2020-09-11 04:02 | NUR ---
PATIENT HAS REMAINED ALERT AND ORIENTED X 4, SLIGHT FORGETFULNESS AT TIMES. MEDS PER ORDER. LAST LITER OF IVF'S INFUSING. VITAL SIGNS STABLE. SMALL BM OVERNIGHT. CONTINUES TO HAVE SOME URINARY INCONT. AM LAB PENDING. FALL PRECAUTIONS IN PLACE. CONTINUE TO MONITOR.
[2020-09-11 05:41] LABS: HEMATOCRIT 30.5 % (42.0-52.0); HEMOGLOBIN 9.8 gm/dL (14.0-18.0); MCH 28.5 pg (26.0-34.0); MCHC 32.1 g/dL (28.0-37.0); MCV 88.6 fL (80.0-100.0); MPV 8.1 fl. (7.2-11.1); RBC 3.44 mil/uL (4.50-6.00); RDW-CV 16.3 % (10.5-14.5); WBC 3.5 thou/uL (4.0-11.0)
[2020-09-11 06:00] LABS: CALCIUM 7.8 mg/dL (8.5-10.1); CREATININE 2.2 mg/dL (0.6-1.3); MAGNESIUM 1.8 mg/dL (1.8-2.4); POTASSIUM 3.3 mmol/L (3.5-5.1)
[2020-09-11 07:35] VITALS: BP 162/78
[2020-09-11 15:52] LABS: MAGNESIUM 1.8 mg/dL (1.8-2.4); POTASSIUM 3.8 mmol/L (3.5-5.1)
--- NOTE | 2020-09-11 16:26 | NUR ---
PT REMAINED ALERT AND ORIENTED. PT UP IN WHEELCHAIR PART OF DAY. PT CLEANED UP TWICE THIS SHIFT. PT C/O PAIN. FEBRILE THIS SHIFT, MEDS GIVEN ORDERED. FALL RISK PRECAUTIONS IN PLACE. ACCU CHECKS COMPLETED. HOURLY ROUNDING COMPLETED. WILL CONTINUE TO MONITOR.
[2020-09-11 16:39] VITALS: BP 132/71
[2020-09-11 20:00] VITALS: BP 139/72
[2020-09-12 05:53] LABS: CALCIUM 7.8 mg/dL (8.5-10.1); CREATININE 2.5 mg/dL (0.6-1.3); MAGNESIUM 1.8 mg/dL (1.8-2.4); POTASSIUM 3.9 mmol/L (3.5-5.1)
--- NOTE | 2020-09-12 07:15 | NUR ---
Alert and oriented x 4. Vitals are stable, he is up with assist to the chair. He has had pain meds x 2 this shift and Mag ox x 2 this shift also. His mg was low this am. He slept well.
[2020-09-12 07:40] VITALS: BP 159/94
--- NOTE | 2020-09-12 09:22 | EKG ---
[place] [address] ELECTROCARDIOGRAM REPORT Name: TRINI JULIEN Room: [address] ADM IN M.R.#: [id number] Admission: 09/08/20 Attend Phys: Epifanio Greene, Discharge: Date of : 47 Date of Service: 09/12/20 0747 Report #: [id number] THIS REPORT FOR: //name// [facility] Test Date: 2020-09-12 Test Time: 07:47:47 Pat Name: TRINIAshley JULIEN Department: Room: [address] Gender: M Dental Appliance Mechanic: VINI : 1945 Requested By: Epifanio Greene Order Number: [id number] Sanjay MD: Ger Barajas Measurements Intervals [place] Rate: 141 P: -5 MD: 158 QRS: 55 QRSD: 159 T: -10 QT: 343 QTc: 526 Interpretive Statements atrial fibrillation Right bundle branch block Baseline wander in lead(s) V3 Compared to ECG 09/08/2020 18:09:42 Sinus rhythm no longer present Electronically Signed On 09-12-2020 9:22:06 SALES PLANNER by Ger Barajas [email or web address] <ELECTRONICALLY SIGNED> By: Ger Barajas MD, [facility] 09/12/20 0922 6 6 Ger Barajas MD, [facility] /EPI
[2020-09-12 13:01] VITALS: BP 99/61
[2020-09-12 17:14] VITALS: BP 117/69
[2020-09-12 19:35] VITALS: BP 116/66
[2020-09-13] VITALS (7 sets, daily range): BP systolic 100–145; BP diastolic 66–80
--- NOTE | 2020-09-13 07:41 | NUR ---
PT A&OX4. PT HAD AFIB WITH RVR AT APPROX 0315, PHYSICIAN CONTACTED AND ORDERS GIVEN FOR CARDIZEM DRIP, PT AFIB WITH PULSE OF 109 BY 0350. PT TURNED Q2H, NO C/O PAIN THIS SHIFT. REPORT GIVEN AND CARE TRANSFERED TO DAY SHIFT NURSE APPROX 0723.
--- NOTE | 2020-09-13 10:44 | CON ---
[address] [address] CONSULTATION Name: TRINI JULIEN Room: [address] IN M.R.#: [id number] Admission: 09/08/20 Attend Phys: Epifanio Greeen MD Discharge: Date of : 47 Report #: [id number] THIS REPORT FOR: //name// cc: Louis Bey Meng, Zhao ~ DATE OF SERVICE: 09/12/2020 CARDIOLOGY CONSULTATION HISTORY OF PRESENT ILLNESS: The patient is a 75-year-old white male who I was asked to see in the hospital today after he was noted to be in atrial fibrillation. The patient has a long history of paroxysmal atrial fibrillation and flutter. He apparently has been cardioverted 3 times in the past. He previously was followed by my partner, Dr. Raymon Guerrier. He was on amiodarone in the past and has been chronically anticoagulated. In 04/2019, he underwent radiofrequency ablation by Dr. Louie at [facility]. He has been in sinus since that time. After ablation; however, he was noted to have frequent PVCs including bigeminy. Dr. Louie placed the patient on flecainide. Dr. Guerrier last saw the patient in cardiology clinic in July when he was doing well. He has a history of venous stasis and takes diuretics. He apparently has had no history of coronary artery disease. The patient apparently was in [place] years ago when he fell and fractured his ankle. He required ankle surgery in [place]. When he returned to [facility] he had problems with the surgery and eventually underwent left wetpa-tzj-jggz amputation. He now has a prosthesis. He is not very active at this time. The patient has a history of urinary hesitancy and does self-catheterization. He has had a history of UTIs. Recently, he has been fatigued and sleeping all the time according to his . He noticed burning when he peed. Because of confusion, he actually went to the Emergency Room here at [place] 4 days ago. He was admitted to a monitored bed with urinary tract infection. Yesterday, he developed recurrent rapid atrial fibrillation. Cardiology consultation was requested. He denies any chest pain, shortness of breath. He did note the palpitations, but no lightheadedness or syncope. He has had no recent bleeding, fever or cough. PAST MEDICAL HISTORY: He has had previous cholecystectomy. He had surgery on his pancreas in the past following pancreatitis. He has had a left BKA. He has a history of sleep apnea, uses CPAP, diabetes. CURRENT MEDICATIONS: Consist of allopurinol, flecainide, insulin, Synthroid, metoprolol, oxybutynin, Lyrica, Zoloft, Flomax, Demadex, Effexor, Xarelto. ALLERGIES: HE HAS PREVIOUS [place] [address] CONSULTATION Name: ILEANA JULIENAshley Van Room: [address]#: [id number] Admission: 09/08/20 Attend Phys: Epifanio Greene MD Discharge: Date of : 47 Report #: [id number] FAMILY HISTORY: Negative for heart disease. SOCIAL HISTORY: He is . He and his live here in [place]. 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 No smoking or alcohol abuse. REVIEW OF SYSTEMS: He apparently had a previous CT scan that showed evidence of stroke. No history of asthma, liver disease. He has chronic kidney disease. He has a history of prostate cancer, treated with radiation therapy. No chronic skin condition. No psychiatric illness. PHYSICAL EXAMINATION: GENERAL: Revealed an elderly male, appeared in no distress. VITAL SIGNS: He had a blood pressure of 130/70, pulse is 110, respirations nonlabored and he is afebrile. HEENT: He was anicteric. Conjunctivae pink. Mucous membranes moist. NECK: Veins do not appear distended. No carotid bruits. CHEST: Clear to auscultation. CARDIOVASCULAR: Irregular, tachycardia. Grade 2 systolic ejection murmur. ABDOMEN: Soft. EXTREMITIES: His right lower extremity had no edema. Dorsalis pedis pulse cannot be palpated. SKIN: Cool and dry. IMAGING: ECG on admission showed a sinus rhythm with a right bundle branch block. ECG from last night showed atrial fibrillation with rapid ventricular response. LABORATORY WORK: He had sodium of 141, potassium 3.9, creatinine 2.5. His glucose 184. Liver function studies are normal. Albumin is 2.6. BNP 6690. Lipid profile in November included cholesterol 122, triglyceride 217, HDL 24, LDL of 155. TSH 3 days ago was 0.7, T4 of 0.8. His white blood cell count 3.5, hemoglobin 9.8, it was 8.5 in last December. His iron saturation is 21%, ferritin 68 in 2017. The patient had a CT scan on admission because of his weakness, confusion that showed microvascular ischemia, no acute infarction. His chest x-ray, possible infiltrate. The patient had an echocardiogram in November this year that showed an ejection fraction 60%, left ventricular hypertrophy, left atrial enlargement, aortic sclerosis, moderate mitral regurgitation. IMPRESSION AND RECOMMENDATIONS: 1. Atrial fibrillation. The patient is anticoagulated with Xarelto. I would recommend resuming amiodarone. I would continue beta-batsheva for rate control. If he continues to have persistent atrial fibrillation, would recommend cardioversion. 2. Hypertension. The patient is on a beta batsheva. [address] [address] CONSULTATION Name: ILEANA JULIENAshley Van Room: [address] IN .R.#: [id number] Admission: 09/08/20 Attend Phys: Epifanio Greene MD Discharge: Date of : 47 Report #: [id number] 3. Diabetes. 4. Previous kimpd-rxb-okgh amputation following surgery. 5. Urinary tract infection. 6. Chronic kidney disease. 7. Anemia. No history of bleeding. 8. Previous stroke by CT scan. 9. History of pancreatitis. 10. Hypertriglyceridemia. <ELECTRONICALLY SIGNED> By: Ger Barajas MD, FACC 09/13/20 1044 1127 1243Dsaul Barajas MD, FACC /nt
--- NOTE | 2020-09-13 11:06 | EKG ---
[place] [address] ELECTROCARDIOGRAM REPORT Name: TRINI JULIEN Room: [address] ADM IN M.R.#: [id number] Admission: 09/08/20 Attend Phys: Epifanio Greene, Discharge: Date of : 47 Date of Service: 09/13/20 0845 Report #: [id number] THIS REPORT FOR: //name// [facility] Test Date: 2020-09-13 Test Time: 08:45:35 Pat Name: TRINI COHENANAYA Department: Room: [address] Gender: M Agricultural Science Professor: : 1945 Requested By: Ger Barajas Order Number: [id number] Sanjay MD: Ger Barajas Measurements Intervals [place] Rate: 107 P: [place]: QRS: 80 QRSD: 157 T: 17 QT: 392 QTc: 523 Interpretive Statements Atrial fibrillation Right bundle branch block Compared to ECG 09/12/2020 07:47:47 rate has slowed Electronically Signed On 09-13-2020 11:06:25 SEARCH ENGINE MARKETING SPECIALIST by Ger Barajas [email or web address] <ELECTRONICALLY SIGNED> By: Ger Barajas MD, [facility] 09/13/20 1106 0845 0845 Ger Barajas MD, [facility] /EPI
--- NOTE | 2020-09-13 13:34 | NUR ---
Cards following for rapid afib, possible cardioversion tomorrow. On Cardizem gtt. Switch to oral ABX. Goal is home with at co, Pt is current with [facility] p:[phone] f:[phone]. Possible dc tomorrow.
[2020-09-14] VITALS (16 sets, daily range): BP systolic 10–128; BP diastolic 54–74
--- NOTE | 2020-09-14 07:20 | NUR ---
CHANGE OF SHIFT BEDSIDE REPORT GIVEN PATIENT SEEN AT BEDSIDE, IN BED ASLEEP ASSUMED PATIENT CARE
--- NOTE | 2020-09-14 08:12 | NUR ---
PT CARE ASSUMED AT 1930. ALERT AND ORIENTED X4 BUT FORGETFUL. PT IS INCONTINENT OF URIINE. CALL LIGHT WITHIN REACH AND BED IN LOW POSITION. HOURLY ROUNDING DONE FOR PT SAFETY.
--- NOTE | 2020-09-14 10:17 | EKG ---
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 09/14/20 1017 0845 0845 Ger Barajas MD, [facility] /EPI
--- NOTE | 2020-09-14 12:59 | NUR ---
Pt to have cardioversion today, plan dc to home tomorrow per cardiology. Resume HH with [facility]. [facility] f:[phone]
[2020-09-15 00:22] VITALS: BP 113/61
[2020-09-15 05:18] VITALS: BP 117/63
[2020-09-15 07:30] VITALS: BP 115/60
[2020-09-15] MEDS ORDERED: PACERONE 200 M200 M1 PO (08:13)
[2020-09-15] MEDS ORDERED: ACIDOPHILUS1 EAC4 PO (08:13)
[2020-09-15] MEDS ORDERED: CEFUROXIME500 MG PO (08:13)
[2020-09-15 08:37] VITALS: BP 107/65
--- NOTE | 2020-09-15 09:03 | NUR ---
Pt discharging to home today, CM faxed resumption HH orders to [facility].
[2020-09-15 09:52] VITALS: BP 107/65
[2020-09-15 11:28] VITALS: BP 107/65
--- NOTE | 2020-09-15 13:03 | EKG ---
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: : 1945 Requested By: Ger Barajas Order Number: [id number] Sanjay MD: Ger Barajas Measurements Intervals [place] Rate: 59 P: 23 MN: 175 QRS: 7 QRSD: 165 T: 0 QT: 506 QTc: 502 Interpretive Statements Sinus rhythm Right bundle branch block Compared to ECG 09/14/2020 08:45:22 Atrial fibrillation no longer present Electronically Signed On 09-15-2020 13:03:01 STEMMER MACHINE by Ger Barajas [email or web address] <ELECTRONICALLY SIGNED> By: Ger Barajas MD, [facility] 09/15/20 1303 9 9 Ger Barajas MD, [facility] /EPI
--- NOTE | 2020-09-15 13:04 | CARD ---
[address] [address] CARDIAC CATH REPORT Name: TRINI JULIEN Room: [address] IN M.R.#: [id number] Admission: 09/08/20 Attend Phys: Epifanio Greene MD Discharge: Date of : 47 Report #: [id number] THIS REPORT FOR: cc: Louis Bey Meng, Zhao ~ Blick, David R. MD [facility] DATE OF SERVICE: 09/14/2020 TYPE OF PROCEDURE: Direct current cardioversion of atrial fibrillation. INDICATIONS: The patient had a history of paroxysmal atrial fibrillation. The patient had been on Xarelto. He recently was started on amiodarone. The plan was to perform repeat cardioversion in an effort to restore sinus rhythm. PROCEDURE: The patient was brought to the cardiac catheterization lab in the fasting state after having been on Xarelto and amiodarone. Informed consent was obtained by discussing indications, alternatives and risks of the procedure with the patient and he agreed to proceed. Cardioversion patches were applied in the anterior and posterior location. Moderate sedation was accomplished by administering divided doses of Versed and fentanyl. After achieving moderate sedation, cardioversion was performed by administering 200 joules of direct current energy in a synchronized fashion. The patient was then cardioverted from atrial fibrillation to normal sinus rhythm. The patient tolerated the procedure well and was transferred back to monitored bed in stable condition. RESULTS: Successful direct current cardioversion of atrial fibrillation to normal sinus rhythm. <ELECTRONICALLY SIGNED> By: Ger Barajas MD, FACC 09/15/20 1304 1142 1150David Reggie Barajas MD, [facility] /nt
== END 2020-09-15 13:48 | disposition home health service (06) | DRG 871 ==
LOC: M.ERS 18:05 → M.TBA-ER 19:39 → M.3W 19:39 → M.2W 09-12 09:41
PROVIDERS: Physician Assistant; ADMIT Internal Medicine; ATTEND Internal Medicine
PROC: 5A2204Z Restoration of Cardiac Rhythm, Single (ICD-10-PCS; principal; 2020-09-08)
DX: A41.50 Gram-negative sepsis, unspecified (principal); G92 Toxic encephalopathy; E43 Unspecified severe protein-calorie malnutrition; N17.0 Acute kidney failure with tubular necrosis; N39.0 Urinary tract infection, site not specified; I48.0 Paroxysmal atrial fibrillation; E11.42 Type 2 diabetes mellitus with diabetic polyneuropathy; E11.22 Type 2 diabetes mellitus with diabetic chronic kidney disease; I12.9 Hypertensive chronic kidney disease with stage 1 through stage 4 chronic kidney disease, or unspecified chronic kidney disease; N18.30 Chronic kidney disease, stage 3 unspecified; G47.33 Obstructive sleep apnea (adult) (pediatric); M1A.9XX0 Chronic gout, unspecified, without tophus (tophi); F32.9 Major depressive disorder, single episode, unspecified; Z68.27 Body mass index [BMI] 27.0-27.9, adult; K22.2 Esophageal obstruction; Z20.828 Contact with and (suspected) exposure to other viral communicable diseases; N41.9 Inflammatory disease of prostate, unspecified; E03.9 Hypothyroidism, unspecified; Z90.49 Acquired absence of other specified parts of digestive tract; Z89.612 Acquired absence of left leg above knee; Z79.4 Long term (current) use of insulin; Z79.899 Other long term (current) drug therapy; Z79.01 Long term (current) use of anticoagulants; Z87.891 Personal history of nicotine dependence

== ENCOUNTER 2020-09-16 13:30 | Inpatient (IN) | payer OTHER ==
[~2020-09-16] VITALS: Ht 175.3 cm; Wt 88.1 kg
--- NOTE | ~2020-09-16 | CON ---
[address] [address] CONSULTATION Name: ANAYATRINI E Room: [address] IN M.R.#: [id number] Admission: 09/16/20 Attend Phys: Zachary Amaya, Discharge: Date of : 47 Report #: [id number] THIS REPORT FOR: cc: Louis Bey Meng, Zhao ~ Gurinder Cheney MD DATE OF SERVICE: 09/22/2020 Please note at the time of this dictation, the patient was seen and physically examined by myself. REASON FOR CONSULTATION: Diarrhea. HISTORY OF PRESENT ILLNESS: This is a 75-year-old male, presented to the Emergency Room after going home 2 days prior for sepsis. He went home on antibiotic, Ceftin. He subsequently began reporting diarrhea and increased weakness. He says his diarrhea was very loose. No bright red blood or black noted and it was 4-5 times a day. Prior to this on his previous hospitalization, he states his bowels moved once or twice a day, soft and formed. He recently saw Dr. Olivia as an office visit and is planning on a colonoscopy for history of polyps after the first of the year. He does have some episodes of acid reflux periodically if he takes orange juice for hypoglycemia. Otherwise, his reflux is under control. He denies any abdominal pain, any nausea or vomiting at this particular time. His last bowel movement was last evening and he has had no further bowel movements since that time. His symptoms seemed to be improving at the present time. ALLERGIES: No known drug allergies. MEDICATIONS: From home include insulin, Ceftin, amiodarone, acidophilus, acetaminophen, sertraline, tamsulosin, venlafaxine, primidone, allopurinol, torsemide, levothyroxine, ____ pancreatic enzymes, Xarelto, B12 and vitamin D. PAST MEDICAL HISTORY: Includes paroxysmal atrial fib/flutter, status post cardioversion x 4. He had an ablation in 03/2019. Diabetes, chronic kidney disease, hypertension, osteoarthritis, gout, arthritis, depression, hypothyroidism, he has got an essential tremor, history of nephrolithiasis, prostate cancer status post radiation 5 years ago, history of pancreatitis status post ductal dilatation. PAST SURGICAL HISTORY: Left lower extremity amputation, cardioverted in the past. FAMILY HISTORY: Negative for [place] [address] CONSULTATION Name: ANAYATRINI E Room: [address]#: [id number] Admission: 09/16/20 Attend Phys: Zachary Amaya, Discharge: Date of : 47 Report #: [id number] SOCIAL HISTORY: . Denies any tobacco or illegal drug use. Alcohol use, quit about 3 years ago. REVIEW OF SYSTEMS: Twelve-point review of systems is essentially negative except what is mentioned in the HPI. PHYSICAL EXAMINATION: VITAL SIGNS: Temperature 36.2, pulse 50, respirations 16, blood pressure 148/68. HEART: Regular rate and rhythm. LUNGS: Clear. ABDOMEN: Soft, positive bowel sounds in all 4 quadrants with no masses or tenderness noted. LABORATORY DATA: Hemoglobin 10.6, white count 5.4, platelets 262. GFR is 35. His C. diff and Giardia were negative on stool cultures. IMPRESSION: 1. Diarrhea. Recent antibiotic use secondary to sepsis, which is now improving. 2. Gastroesophageal reflux disease. 3. History of colon polyps. Colonoscopy due after the first of the year. 4. Anticoagulant therapy, Xarelto for atrial fibrillation. 5. Chronic kidney disease. 6. History of pancreatitis. 7. History of prostate cancer, postradiation, 5 years ago. PLAN: 1. We will consult Cardiology regarding his Xarelto prior to any procedures. 2. We will await above input from Cardiology to weigh in on the situation. 3. Further recommendations to be made once Dr. Cheney sees the patient later today. Thank you for allowing us to participate in this patient's care. Please do not hesitate to call with any questions in regard to this consult. By: 0935 1012Guridner Cheney MD /michel
[~2020-09-16 13:30] MED LIST changes: +ACIDOPHILUS1 EAC4 PO; +CEFUROXIME500 MG PO
[2020-09-16 13:42] VITALS: BP 123/66
[2020-09-16 14:56] LABS: ABSOLUTE EOSINOPHILS 0.2 thou/uL (0.0-0.7); ABSOLUTE MONOCYTES 0.3 thou/uL (0.0-1.2); ABSOLUTE NEUTROPHILS 4.8 thou/uL (1.6-8.1); BASOPHILS 0.5 %; EOSINOPHILS 3.7 %; LYMPHOCYTES 16.2 %; MCH 28.5 pg (26.0-34.0); MCHC 32.1 g/dL (28.0-37.0); MCV 88.8 fL (80.0-100.0); MONOCYTES 5.1 %; MPV 8.1 fl. (7.2-11.1); NUCLEATED RBCS 0 /100WBC; PLATELET COUNT* 247 thou/uL (150-400); POLYS 74.5 %; RBC 3.49 mil/uL (4.50-6.00); WBC 6.4 thou/uL (4.0-11.0)
[2020-09-16 15:08] LABS: CALCIUM 7.6 mg/dL (8.5-10.1); CREATININE 2.9 mg/dL (0.6-1.3); POTASSIUM 4.2 mmol/L (3.5-5.1)
[2020-09-16 15:11] LABS: APTT 34.3 Seconds (25.0-31.3); INR 1.2; PROTIME 13.1 Seconds (9.20-11.50)
[2020-09-16 15:18] LABS: ALBUMIN 2.3 g/dL (3.4-5.0); TOTAL BILIRUBIN 0.2 mg/dL (<0.1-1.0); TOTAL PROTEIN 5.8 g/dL (6.4-8.2)
[2020-09-16 16:33] VITALS: BP 123/55
[2020-09-16 16:45] VITALS: BP 132/62
--- NOTE | 2020-09-16 18:44 | NUR ---
PATIENT ARRIVED FROM ER THIS EVENING. PATIENT SETTLED TO ROOM. HISTORY, ASSESSMENT AND VITALS COMPLETED AND DOCUMENTED. PATIENT DENIES ANY PAIN. PATIENT HAS HAD BOWEL MOVEMENT X 1, SAMPLE SENT TO LAB. PATIENT IS INCONTINENT OF BOWEL AND BLADDER, BARRIER CREAM APPLIED. PATIENT HAS GOOD APPETITE. PATIENT DENIES ANY NEEDS AT THIS TIME. CALL LIGHT WITHIN REACH.
[2020-09-16 20:30] VITALS: BP 120/56
[2020-09-17 07:30] VITALS: BP 129/54
--- NOTE | 2020-09-17 07:39 | NUR ---
PT SLEPT WELL OVERNIGHT. HOME MEDS REORDERED AND GIVEN ORDERED OVERNIGHT. HS ACCUCHECK 170, INSULIN GIVEN ORDERED. ROOM AIR SAT. RAC IVF INFUSING PER PUMP. INCONT BOWEL AND BLADDER OVERNIGHT. REMAINS ON SP CONTACT ISOALTION FOR PENDING CDIFF, SPECIMEN SENT TO LAB. PT TURNED AND REPOSITIONED Q2 HOURS AND PRN FOR SKIN CARE AND COMFORT. GRISEL CARE GIVEN WITH STOOLS, BARRIER CREAM APPLIED. ABLE TO USE CALL LITE AND MAKE NEEDS KNOWN.
--- NOTE | 2020-09-17 10:57 | EKG ---
[place] [address] ELECTROCARDIOGRAM REPORT Name: TRINI JULIEN Room: [address] ADM IN M.R.#: [id number] Admission: 09/16/20 Attend Phys: Zachary Porter Discharge: Date of : 47 Date of Service: 09/16/20 1518 Report #: [id number] THIS REPORT FOR: //name// [facility] ED Test Date: 2020-09-16 Test Time: 15:18:52 Pat Name: TRINI JULIEN Department: Room: [facility] Gender: M Clinical Admissions Manager: : 1945 Requested By: Aravind Terrazas Order Number: [id number] MD: Taurus Baig Measurements Intervals [place] Rate: 49 P: 26 CT: 193 QRS: 43 QRSD: 175 T: 34 QT: 587 QTc: 531 Interpretive Statements Sinus bradycardia Right bundle branch block Baseline wander in lead(s) V2 Compared to ECG 09/15/2020 08:20:12 Sinus rhythm no longer present Electronically Signed On 09-17-2020 10:57:30 CAN FILLING MACHINE OPERATOR by Taurus Baig [email or web address] <ELECTRONICALLY SIGNED> By: Jose A Baig MD, FACC 09/17/20 1057 1518 1518 Jose A Baig MD, FAC /EPI
--- NOTE | 2020-09-17 13:22 | NUR ---
CM SPOKE TO THE PT TO DISCUSS CM ASSESSMENT. PT RECENTLY D/C'D 09/15/20 AND READMITTED 09/16/20 WITH WEAKNESS AND MULTIPLE FALLS. PT A&O. PT INFORMS THAT HE IS NORMALLY INDEPENDENT WITH ADL'S. PT RESIDES AT HOME WITH SPOUSE AND SHE HAS BEEN 'HELPING MORE SINCE I GOT SICK'. PT USES WALKER AND W/C FOR MOBILITY. PT HAS LEFT LEG PROSTETHESIS. PT HAS SNF HX AT [facility], AND ARU HX HERE AT [facility]. PT CURRENT WITH [facility] AND WOULD LIKE TO RESUME SERVICE WITH [facility] AT D/C. CM WILL REMAIN AVAILABLE TO ASSIST AND FOLLOW WITH D/C PLANNING. [facility] PHONE: [phone] FAX: [phone]
[2020-09-17 16:50] VITALS: BP 109/68
--- NOTE | 2020-09-17 18:31 | NUR ---
A&OX 4, PWD. LUNGS CLEAR, HEART TONES REGULAR. +BS X 4 QUADS. TREMOR'S NOTED. ASK FOR BEDPAN WHEN NEEDS TO HAVE BM. ON ISOLATION FOR POSSIBLE C-DIFF. IV RIGHT AC INTACT AND PATENT WITH NS AT 100MLS/HR. PT HAS BKA ON LEFT. BRUISING NOTED TO ARMS CANDICE. USING URINAL. NEED UA. CALL LIGHT WITHIN REACH. WILL CONTINUE TO MONITOR.
[2020-09-17 19:17] LABS: URINE BILIRUBIN NEGATIVE (Negative); URINE BLOOD 2+ (Negative); URINE CLARITY CLEAR; URINE COLOR YELLOW; URINE GLUCOSE-RANDOM NEGATIVE (Negative); URINE KETONES NEGATIVE (Negative); URINE LEUKOCYTES-REFLEX 1+ (Negative); URINE NITRITE-REFLEX NEGATIVE (Negative); URINE PROTEIN TRACE (Negative); URINE UROBILINOGEN 0.2 E.U./dl (0.2-1.0)
[2020-09-17 19:44] LABS: CRYSTALS None Seen /LPF (None Seen); SQUAMOUS 4-10 Moderate /LPF (0-3)
[2020-09-17 19:45] LABS: BACTERIA-REFLEX 1-9 Few /HPF (None Seen); HYALINE CASTS 4-10 Moderate /LPF (None Seen); URINE WBC-REFLEX >25 Many /HPF (0-5); YEAST-REFLEX Present (None Seen)
[2020-09-17 19:46] LABS: URINE RBC 3-10 Few /HPF (0-2)
[2020-09-17 21:00] VITALS: BP 131/63
--- NOTE | 2020-09-18 07:56 | NUR ---
PATIENT HAS RESTED WELL THROUGHOUT THE NIGHT. VSS ON RA. NO C/O PAIN. MEDICATIONS GIVEN ORDERED AND CHARTED. PATIENT HAS NOT BEEN UP DURING THE NIGHT. [employer]UMP BUSINESS SYSTEMS CONSULTANT TO LEFT BKA IS INTACT. IV IN RIGHT AC-NS @ 100ML/HR. FALL PRECAUTIONS IN PLACE AND HOURLY ROUNDS MADE. WILL CONTINUE WITH PLAN OF CARE AND NURSING TO MONITOR.
[2020-09-18 08:00] VITALS: BP 132/63
[2020-09-18 13:43] LABS: ABSOLUTE EOSINOPHILS 0.2 thou/uL (0.0-0.7); ABSOLUTE MONOCYTES 0.2 thou/uL (0.0-1.2); ABSOLUTE NEUTROPHILS 3.2 thou/uL (1.6-8.1); BASOPHILS 0.7 %; HEMATOCRIT 29.1 % (42.0-52.0); HEMOGLOBIN 9.4 gm/dL (14.0-18.0); LYMPHOCYTES 22.2 %; MCH 28.6 pg (26.0-34.0); MCHC 32.2 g/dL (28.0-37.0); MCV 88.8 fL (80.0-100.0); MONOCYTES 4.7 %; NUCLEATED RBCS 0 /100WBC; PLATELET COUNT* 243 thou/uL (150-400); POLYS 68.4 %; RBC 3.27 mil/uL (4.50-6.00); RDW-CV 16.4 % (10.5-14.5); WBC 4.7 thou/uL (4.0-11.0)
[2020-09-18 13:57] LABS: ALBUMIN 2.1 g/dL (3.4-5.0); CALCIUM 7.4 mg/dL (8.5-10.1); CREATININE 2.5 mg/dL (0.6-1.3); MAGNESIUM 2.1 mg/dL (1.8-2.4); POTASSIUM 3.8 mmol/L (3.5-5.1); TOTAL BILIRUBIN 0.1 mg/dL (<0.1-1.0); TOTAL PROTEIN 5.4 g/dL (6.4-8.2)
[2020-09-18 16:35] VITALS: BP 123/60
[2020-09-19 05:44] LABS: ALBUMIN 1.9 g/dL (3.4-5.0); CALCIUM 7.3 mg/dL (8.5-10.1); CREATININE 2.4 mg/dL (0.6-1.3); PHOSPHORUS* 4.3 mg/dL (2.5-4.9); POTASSIUM 3.3 mmol/L (3.5-5.1)
[2020-09-19 08:00] VITALS: BP 161/74
--- NOTE | 2020-09-19 08:32 | NUR ---
PATIENT HAS SLEPT WELL THROUGHOUT THE NIGHT. VSS ON RA. MEDICATIONS GIVEN ORDERED AND CHARTED. NO C/O PAIN. LEFT BKA WITH STUMP DIE ENGRAVING SUPERVISOR IN PLACE. IV IN LEFT HAND-NS @ 100ML/HR. FALL PRECAUTIONS IN PLACE AND HOURLY ROUNDS MADE. WILL CONTINUE WITH PLAN OF CARE AND NURSING TO MONITOR.
--- NOTE | 2020-09-19 13:00 | NUR ---
PT.AND LEANING TOWARDS GOING HOME WITH HOME HEALTH AT DISCHARGE. WALKED 55 FT.WITH MIN A,TODAY WITH THERAPY. CHARBEL WITH [facility] .
[2020-09-19 17:10] VITALS: BP 137/66
[2020-09-19 20:44] VITALS: BP 139/57
--- NOTE | 2020-09-20 04:14 | NUR ---
PT A&OX4, VSS ON ROOM AIR, PT TURNED Q2H, NO C/O PAIN OR DISCOMFORT THIS SHIFT, PT SLEEPING WELL, WILL CONTINUE TO MONITOR.
[2020-09-20 07:30] VITALS: BP 157/74
[2020-09-20 16:00] VITALS: BP 138/64
--- NOTE | 2020-09-20 18:43 | NUR ---
PT REMAINED ALERT AND ORIENTED. PT UP IN CHAIR FOR BREAKFAST AND LUNCH. Q2 TURNS COMPLETED. FALL RISK PRECAUTIONS IN PLACE. HOURLY ROUNDING COMPLETED.
[2020-09-20 21:36] VITALS: BP 151/71
--- NOTE | 2020-09-21 04:31 | NUR ---
PATIENT HAS REMAINED ALERT AND ORIENTED X 4 THROUGHOUT THE SHIFT AND RESTING QUIETLY ON HOURLY ROUNDS. USING URINAL WITH SOME INCONT. SKIN CARE WITH INCONT. ASSIST/ENC Q2H TURNING. VITAL SIGNS STABLE/AFEBRILE. FALL PRECAUTIONS IN PLACE. CONTINUE TO MONITOR.
[2020-09-21 06:17] LABS: HEMOGLOBIN 10.6 gm/dL (14.0-18.0); NUCLEATED RBCS 0 /100WBC; WBC 5.4 thou/uL (4.0-11.0)
[2020-09-21 06:19] LABS: ABSOLUTE EOSINOPHILS 0.2 thou/uL (0.0-0.7); ABSOLUTE LYMPHOCYTES 1.3 thou/uL (0.8-5.3); ABSOLUTE MONOCYTES 0.4 thou/uL (0.0-1.2); ABSOLUTE NEUTROPHILS 3.5 thou/uL (1.6-8.1); BASOPHILS 0.4 %; EOSINOPHILS 3.2 %; HEMATOCRIT 34.2 % (42.0-52.0); LYMPHOCYTES 24.1 %; MCH 28.6 pg (26.0-34.0); MCV 92.1 fL (80.0-100.0); MONOCYTES 6.9 %; MPV 7.9 fl. (7.2-11.1); PLATELET COUNT* 262 thou/uL (150-400); POLYS 65.4 %; RBC 3.71 mil/uL (4.50-6.00); RDW-CV 16.8 % (10.5-14.5)
[2020-09-21 06:36] LABS: CALCIUM 7.6 mg/dL (8.5-10.1); CREATININE 1.9 mg/dL (0.6-1.3); PHOSPHORUS* 3.3 mg/dL (2.5-4.9); POTASSIUM 4.5 mmol/L (3.5-5.1)
[2020-09-21 07:25] VITALS: BP 155/65
[2020-09-21 16:39] VITALS: BP 143/61
--- NOTE | 2020-09-21 16:41 | NUR ---
PT REMAINED ALERT AND ORIENTED. PT UP IN ROOM WITH THERAPY AND CHAIR DOING EXERCISES PERIODICALLY. FALL RISK PRECAUTIONS IN PLACE. HOURLY ROUNDING COMPLETED.
--- NOTE | 2020-09-21 19:58 | NUR ---
CM SPOKE WITH PT.TODAY. HE WOULD LIKE TO GO HOME WITH HIS AND HOME HEALTH. HE IS CURRENT WITH fl3ur . DID WELL WITH THERAPY TODAY. STATED HE IS FEELING STRONGER.
[2020-09-21 20:45] VITALS: BP 148/68
--- NOTE | 2020-09-22 05:27 | NUR ---
PATIENT HAS REMAINED ALERT AND ORIENTED X 4 THROUGHOUT THE SHIFT AND RESTING QUIETLY ON HOURLY ROUNDS. ASSISTED WITH TURNS AND GRISEL-CARE. VITAL SIGNS STABLE ON ROOM AIR. MEDS ORDERED. CONTINUE TO MONITOR.
[2020-09-22 08:55] VITALS: BP 155/72
[2020-09-22] MEDS ORDERED: FLORASTOR250 MG PO (09:58)
--- NOTE | 2020-09-22 12:00 | NUR ---
SPOKE WITH PT. HE WAS UP IN CHAIR. HE TOLD THAT HE DID NOT FEEL SAFE RETURNING HOME TODAY. HE STILL FELT WEAK AND FEELS HE WILL FALL AT HOME. REHAB CONSULT PLACED. EXPLAINED TO PT.THAT INSURANCE HAS TO AUTHORIZE HIM TO GO TO INPT.REHAB. HE IS AWARE OF THIS. HE SAID HE DID NOT WANT TO GO TO SNF. HE FEELS IF HE COULD GET A FEW MORE DAYS TO HAVE THERAPIES HE WOULD BE READY TO GO HOME.
[2020-09-22 16:40] VITALS: BP 136/88
--- NOTE | 2020-09-22 18:30 | NUR ---
Pt remained A&O x4 for entire shift. Pt denies any pain. Pt up to chair for most of the day. Pt continues to have 1+ pitting edema in RLE and non pitting edema in bilateral upper extremities. Pt stated this morning that he did not feel ready to go home. Pt has consult to go to rehab. Pt not given any insulin today per protocol. Pt up to bathroom with 1 assist. Fall precautions in place.
[2020-09-22 21:01] VITALS: BP 142/64
--- NOTE | 2020-09-23 05:37 | NUR ---
PT REFUSED TURNS THROUGH NIGHT BUT WAS ABLE TO SLEEP ALL SHIFT. REPORTED NO PAIN, NAUSEA OR WORSENING OF CONDITION. HE IS INCONTINENT OF URINE. RECEIVED ALL MEDS SCHEDULED. ROOM AIR. D/C ORDERS IN, PLACEMENT PENDING.
[2020-09-23 08:10] VITALS: BP 167/78
[2020-09-23 15:43] VITALS: BP 139/65
--- NOTE | 2020-09-23 16:00 | NUR ---
GI WANTING TO DO COLONSCOPY ON SATURDAY. XARELTO TO BE HELD FOR 48HRS PER NURSING. PT.AGREEABLE TO POC.
[2020-09-23 17:30] LABS: POTASSIUM 4.7 mmol/L (3.5-5.1)
--- NOTE | 2020-09-23 19:34 | NUR ---
Pt remained A&O x4 for entire shift. Vital signs stable. Pt was agreeable to go home today but is staying for GI procedure on Saturday. Pt denies any pain. Still continuing to have loose stools. Pt up walking well with PT today. Pt reports feeling more confident every day. Pt pleasant with staff. Fall precautions in place.
[2020-09-23 20:15] VITALS: BP 153/69
--- NOTE | 2020-09-24 05:02 | NUR ---
PT SLEPT WELL OVERNIGHT. ONE MODERATE LIGHT BROWN MUSHY STOOL OVERNIGHT. INCONT URINE IN BRIEF, GRISEL CARE GIVEN AND BARRIER CREAM APPLIED-AREA LEFT ALFONSO. L BKA. USING URINAL WHILE AWAKE. HS ACCUCHECK 185, INSULIN GIVEN ORDERED WITH SNACK. NO LABS THIS MORNING. SLIV. ROOM AIR. SCHEDULED TYLENOL RECEIVED FOR GENERALIZED ACHES. ABLE TO USE CALL LITE AND MAKE NEEDS KNOWN.BED ALARM ON FOR SAFETY.
[2020-09-24 07:55] VITALS: BP 114/75
[2020-09-24 15:53] VITALS: BP 160/68
--- NOTE | 2020-09-24 18:39 | NUR ---
PATIENT RESTING UP IN CHAIR. PATIENT IS UP WITH ASSIST OF ONE WITH GAIT BELT AND WALKER. PATIENT WORKED WITH PHYSICAL THERAPY THIS AFTERNOON. PATIENT HAD SHOWER THIS AM. PATIENT IS SCHEDULED FOR COLONOSCOPY ON SATURDAY. PATIENT HAS GOOD APPETITE. PATIENT DENIES ANY NEEDS AT THIS TIME. CALL LIGHT WITHIN REACH.
[2020-09-24 20:00] VITALS: BP 158/72
--- NOTE | 2020-09-25 05:10 | NUR ---
PATIENT SLEPT WELL DURING THIS SHIFT. PT INCONTINENT OF BOWEL AND BLADDER. PT WITH ONE LARGE BOWEL MOVEMENT AT BEGINNING OF SHIFT. PT HAS EXCORIATED SKIN IN GROIN/GRISEL AREA. BARRIER CREAM APPLIED. PT WITH BLOOD SUGAR AT 2100 OF 111; SNACK PROVIDED. SALINE LOCK IN RT FOREARM PATENT. PT TURNED Q2H PER PROTOCAL UNLESS PT REFUSED. FREQUENTLY USED ITEMS AND CALL LIGHT WITHIN REACH. SIDERAILS UPX3 AND BED ALARM ON. WILL CONTINUE TO MONITOR.
[2020-09-25 08:24] VITALS: BP 158/71
[2020-09-25 16:20] VITALS: BP 151/69
--- NOTE | 2020-09-25 18:52 | NUR ---
PATIENT CURRENTLY SITTIN UP IN CHAIR, HAS MAINTAINED CLEAR LIQUID DIET THIS SHIFT AND CONTINUES TO DRINK BOWEL PREP, IS ENCOURAGED TO DRINK FASTER AND INFORMED THAT STOOL MUST BE CLEAR LIQUID IN ORDER FOR PROCEDURE TO OCCUR IN THE MORNING. PATIENT STATES HE IS AWARE HE HAS "HAD THIS DONE BEFORE". PATIENT EDUCATED ON BEING NPO AFTER MIDNIGHT TONIGHT AND VOICES UNDERSTANDING. PATIENT'S LAST BM WAS BROWN LIQUID. CALL LIGHT AND FREQUENTLY USED ITEMS WITHIN REACH.
[2020-09-25 21:15] VITALS: BP 160/94
--- NOTE | 2020-09-26 03:27 | NUR ---
PATIENT HAS REMAINED ALERT AND ORIENTED X 4 THROUGHOUT THE SHIFT. UP UNTIL MIDNIGHT TO COMPLETE GOLYTE PREP. STOOLS TRANSLUCENT YELLOW WITH A FEW FRAGMENTS/SEDIMENTATION OF STOOL. NPO AT MIDNIGHT. CONSENT FOR TODAY'S PROCEDURE HAS BEEN OBTAINED. VITAL SIGNS STABLE. CONTINUE TO MONITOR.
[2020-09-26 09:23] VITALS: BP 147/91
--- NOTE | 2020-09-26 14:57 | NUR ---
Nutrition: screen for LOS. Pt has been NPO for colonscopy today. Prior nsg note indicated pt had a good appetite. Wt has been stable this admit and prior 8 months in 180-190 lb range. Prealbumin 13.3, RFT's elevated. Meds: probiotic, psyllium, Questran, insulin, vit D, vit B-12, pancrelipase. Assess at low nutrition risk at this time.
--- NOTE | 2020-09-26 15:10 | NUR ---
PER , HE WILL PLAN TO DISCHARGE PT.TOMORROW,HOME WITH HOME HEALTH. PT.IS AGREEABLE. HE IS ON SERVICE WITH [facility] . FAXED H&P, CARDIOLOGY CONSULT AND PROGRESS NOTE FROM TODAY TO [facility] [phone] UPDATED INFORMATION.
[2020-09-26 16:13] VITALS: BP 168/60
--- NOTE | 2020-09-26 18:30 | NUR ---
PT A&Ox4. VITALS STABLE. IV PATENT. TOLERATING MEALS. PAIN CONTROLLED WITH TYLENOL. UP WITH 1. LEFT BKA. FALL PRECAUTIONS IN PLACE. CALL LIGHT WITHIN REACH. WILL CONTINUE TO MONITOR.
[2020-09-26 19:45] VITALS: BP 147/64
--- NOTE | 2020-09-27 04:43 | NUR ---
PT A&O X 4, ON RA. MEDS GIVEN ORDERED. PAIN MANAGED WITH SCHEDULED TYLENOL. PT SLEPT MOST OF THE NIGHT. CALL LIGHT WITHIN REACH. WILL CONTINUE TO MONITOR.
[2020-09-27 05:15] VITALS: BP 147/90
[2020-09-27 08:00] VITALS: BP 158/82
[2020-09-27 11:22] LABS: ABSOLUTE EOSINOPHILS 0.2 thou/uL (0.0-0.7); ABSOLUTE LYMPHOCYTES 1.1 thou/uL (0.8-5.3); ABSOLUTE MONOCYTES 0.3 thou/uL (0.0-1.2); ABSOLUTE NEUTROPHILS 4.7 thou/uL (1.6-8.1); BASOPHILS 0.4 %; EOSINOPHILS 3.7 %; HEMATOCRIT 35.2 % (42.0-52.0); HEMOGLOBIN 11.1 gm/dL (14.0-18.0); LYMPHOCYTES 16.6 %; MCHC 31.5 g/dL (28.0-37.0); MCV 88.8 fL (80.0-100.0); MONOCYTES 4.6 %; MPV 7.5 fl. (7.2-11.1); NUCLEATED RBCS 0 /100WBC; PLATELET COUNT* 173 thou/uL (150-400); POLYS 74.7 %; RBC 3.97 mil/uL (4.50-6.00); WBC 6.3 thou/uL (4.0-11.0)
--- NOTE | 2020-09-27 11:53 | NUR ---
RECEIVED TELEPHONE ORDER AND READ BACK FROM DR. NAVARRETE FOR 40MG TORSEMIDE NOW AND 20MG TORSEMIDE BEGINNING 09/28.
[2020-09-27 15:01] VITALS: BP 158/82
--- NOTE | 2020-09-27 15:02 | NUR ---
CM INFROMED OF PLAN FOR PT TO D/C HOME TODAY WITH HH. PT IN AGREEMENT. PLAN FOR PT TO RESUME HH WITH [facility]. CM SPOKE TO [facility] TO INFORM OF PT'S D/C AND PLAN TO RESUME HH. [facility] TO CONTACT PT TO ARRANGE A TIME TO VISIT. CM WILL REMAIN AVAILABLE TO ASSIST AND FOLLOW NEEDED. [facility] PHONE: [phone] FAX: [phone]
--- NOTE | 2020-09-27 15:37 | NUR ---
EMMA MEDINA TOLD CM PT.WAS NOT DISCHARGING TODAY AFTER ALL BUT MOST LIKELY TOMORROW. KEN NOTIFIED LUIS MIGUEL/[facility] [phone].
[2020-09-27 16:28] VITALS: BP 167/80
--- NOTE | 2020-09-27 18:59 | NUR ---
PATIENT CURRENTLY LYING IN BED RESTING. PATIENT NOT DISCHARGED TODAY DUE TO BLEEDING FROM RECTUM EARLIER IN SHIFT. CBC COMPLETED THIS SHIFT AND WILL BE COMPLETED AGAIN 09/28. PATIENT HAS DENIED ANY NEW PAIN THIS SHIFT AND VOICES NO CONCERNS AT THIS TIME. CALL LIGHT AND FREQUENTLY USED ITEMS WITHIN REACH.
[2020-09-27 20:35] VITALS: BP 148/71
[2020-09-28] VITALS: BP 121/59
[2020-09-28 04:00] VITALS: BP 160/69
[2020-09-28 06:33] LABS: ABSOLUTE EOSINOPHILS 0.3 thou/uL (0.0-0.7); ABSOLUTE LYMPHOCYTES 1.2 thou/uL (0.8-5.3); ABSOLUTE MONOCYTES 0.3 thou/uL (0.0-1.2); ABSOLUTE NEUTROPHILS 3.3 thou/uL (1.6-8.1); BASOPHILS 0.2 %; HEMATOCRIT 27.7 % (42.0-52.0); HEMOGLOBIN 9.2 gm/dL (14.0-18.0); MCH 28.7 pg (26.0-34.0); MCHC 33.1 g/dL (28.0-37.0); MCV 86.7 fL (80.0-100.0); MONOCYTES 5.5 %; MPV 8.5 fl. (7.2-11.1); NUCLEATED RBCS 0 /100WBC; PLATELET COUNT* 146 thou/uL (150-400); POLYS 65.3 %; RBC 3.19 mil/uL (4.50-6.00); RDW-CV 16.8 % (10.5-14.5); WBC 5.1 thou/uL (4.0-11.0)
--- NOTE | 2020-09-28 06:37 | NUR ---
PT SLEPT WELL OVERNIGHT. INCONT URINE, GRISEL CARE GIVEN. INCONT BOWEL THIS MORNING-REPORTED BY MUSIC TEACHER LARGE SOFT BROWN AND RED. AM LABS DRAWN. SCHEDULED TYLENOL GIVEN FOR CHRONIC LEG PAIN. PT TURNED AND REPOSITIONED Q2 HOURS AND PRN OVERNIGHT FOR SKIN CARE AND COMFORT. GRISEL AREA RED, GRISEL CARE GIVEN AND BARRIER CREAM APPLIED. VSS. ABLE TO USE CALL LITE AND MAKE NEEDS KNOWN. BED ALARM ON FOR SAFETY OVERNIGHT. SL IV.
[2020-09-28 08:10] VITALS: BP 157/79
[2020-09-28 12:15] LABS: HEMATOCRIT 34.2 % (42.0-52.0); HEMOGLOBIN 10.8 gm/dL (14.0-18.0); MCH 28.1 pg (26.0-34.0); MCHC 31.5 g/dL (28.0-37.0); MCV 89.3 fL (80.0-100.0); RBC 3.83 mil/uL (4.50-6.00); RDW-CV 16.7 % (10.5-14.5); WBC 5.2 thou/uL (4.0-11.0)
[2020-09-28 12:28] LABS: CALCIUM 7.8 mg/dL (8.5-10.1); CREATININE 1.8 mg/dL (0.6-1.3); POTASSIUM 4.1 mmol/L (3.5-5.1)
--- NOTE | 2020-09-28 12:33 | NUR ---
PT.TO BE DISCHARGED TODAY WITH HOME HEALTH. NOTIFIED [facility] [phone] THAT PT.IS DISCHARGING TODAY. THEY RECEIVED THE DISCHARGE ORDERS YESTERDAY. FAXED PROGRESS NOTE FROM TODAY
[2020-09-28 12:38] VITALS: BP 157/79
--- NOTE | 2020-09-28 13:26 | NUR ---
THIS NURSE AGREES WITH MORNING ASSESSMENT BY HESHAM MACE
--- NOTE | 2020-09-28 13:35 | NUR ---
PT ALERT AND ORIENTED X 4. IV TAKEN OUT WITH CATHETER INTACT. COTTON BALL AND TAPE APPLIED TO SITE. PT STATES UNDERSTANDING TO D/C INSTRUCTIONS. HH TO FOLLOW UP WITH PT AND INCLUDE THERAPY SERVICES. PT TAKEN VIA W/C AND NURSING STAFF.
[2020-09-28 13:40] VITALS: BP 157/79
--- NOTE | 2020-09-29 12:12 | CON ---
[address] [address] CONSULTATION Name: TRINI JULIEN Room: [address] IN [place].#: [id number] Admission: 09/16/20 Attend Phys: Zachary Amaya, Discharge: 09/28/20 Date of : 47 Report #: [id number] THIS REPORT FOR: cc: Louis Bey Meng, Zhao ~ Khan, Abid R. MD NEPHROLOGY CONSULTATION CONSULTING PHYSICIAN: Zachary Amaya MD REASON FOR CONSULTATION: Elevated creatinine. 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 He believes he sees a urologist in the [place] area, but comes in with diarrhea for the past few days, which is currently being worked up. He is also on torsemide. He had a creatinine of 2.9 on admission. His creatinine seems to run in the 1.7 to low 2 range since 2017. He denies any NSAID use. No other complaints at present time. REVIEW OF SYSTEMS: Constitutional, psych, heme, eyes, ENT, respiratory, cardiac, GI, , endocrine, all negative except as documented above. PAST MEDICAL HISTORY: Diabetes type 2, chronic kidney disease stage 3, hypertension, obstructive sleep apnea, depression, hypothyroidism, history of nephrolithiasis with lithotripsy, prostate cancer with radiation, history of pancreatitis, esophageal dysphagia requiring dilatation, cholecystectomy, paroxysmal AFib with cardioversion and ablation in the past, diabetes type 2. SOCIAL HISTORY: No tobacco. FAMILY HISTORY: Not pertinent to current clinical case. CURRENT MEDICATIONS: Reviewed. PHYSICAL EXAMINATION: VITAL SIGNS: Blood pressure is 133/63, pulse 59, respirations 18 and temperature 36.0. GENERAL: No acute distress. EYES: Open. EARS: Externally normal. NECK: Supple. CARDIOVASCULAR: Regular rate. LUNGS: No crackles. ABDOMEN: [place] [address] CONSULTATION Name: ANAYA,TRINI E Room: [address]#: [id number] Admission: 09/16/20 Attend Phys: Zachary Amaya, Discharge: 09/28/20 Date of : 47 Report #: [id number] MUSCULOSKELETAL: Nontender. PSYCHIATRIC: Awake, alert. LABORATORY DATA: White cell count 6.4, hemoglobin 10, platelets 247. Sodium from the 11th was 136, potassium 4.2, chloride 104, bicarbonate 26, BUN 45, creatinine 2.9, glucose 129, calcium 7.6, albumin 2.3. ASSESSMENT: 1. Acute kidney injury with a creatinine of 2.9 on admission. CK was okay. This is in the setting of diarrhea, on torsemide. 2. Chronic kidney disease stage 3B. Creatinine has been running 1.7 into the low 2 range since 2016; 07/2020, creatinine was running about 1.7-1.9 and 09/12, creatinine was 2.5. 3. Hypoalbuminemia with an albumin of 2.3, UA suggestive of urinary tract infection. 4. Insulin-dependent diabetes type 2. 5. Hypertension. 6. Hypoalbuminemia with an albumin of 2.3. PLAN: Lab from today has been ordered. We will discontinue torsemide. Ordered hydration and check renal ultrasound. We will check lab again in the a.m. Thank you for requesting my opinion in the care and management of this patient. <ELECTRONICALLY SIGNED> By: Abdullahi Rucekr MD 09/29/20 1212 1327 [id number] Rucker MD /nt
--- NOTE | 2020-10-03 12:06 | PATH ---
[address] [address] PATHOLOGY RPT PROCEDURE Name: MANDO MONTAÑO Room: [address] IN [place]#: [id number] Admission: 09/16/20 Date of : 47 Discharge: 09/28/20 Report #: [id number] Path Case #: [id number] [facility] Accession Number: [id number] . 01 Material submitted: . PART A: colon - COLON POLYP PART B: colon - SIGMOID COLON POLYP. Modifiers: sigmoid PART C: rectum - RECTAL POLYP . 01 Clinician provided ICD-10: N17.0 . 01 Clinical history: . DIARRHEA WEAKNESS . 02 Diagnosis: A. Large bowel "colon polyp", endoscopic biopsy: - Polypoid fragments of large bowel mucosa with prominent intramucosal lymphoid aggregates; negative for dysplasia and malignancy. . B. Large bowel "sigmoid polyp", endoscopic biopsy: - Tubular adenoma; negative for high-grade dysplasia and malignancy. . C. Large bowel "rectal polyp", endoscopic biopsy: - Tubular adenoma; negative for high-grade dysplasia and malignancy. (MLK:rosa maria; 09/29/2020 QMS 10/03/2020 1158 Local . 02 Electronically signed: . Shannon Avitia MD, Pathologist NPI- [id number] . 01 Gross description: . A. Received in formalin labeled "Mando Montaño, colon polyp" are multiple carter-brown soft tissue fragments measuring in aggregate 0.7 x 0.6 x 0.1 cm. The specimen is submitted entirely in A1. . B. Received in formalin labeled "Danyel, Mando, sigmoid colon polyp" are multiple carter-brown soft tissue fragments measuring in aggregate 0.8 x 0.7 x 0.1 cm. The specimen is submitted entirely in B1. . C. Received in formalin labeled "Danyel, Mando, rectal polyp" are multiple carter-brown soft tissue fragments measuring in aggregate 0.7 x 0.7 x 0.2 cm. The specimen is submitted entirely in C1. [place]/27/2020) [facility] 09/27/2020 1834 Local . 02 Pathologist provided ICD-10: [place] [address] PATHOLOGY RPT PROCEDURE Name: MANDO MONTAÑO Room: [address] [place]#: [id number] Admission: 09/16/20 Date of : 47 Discharge: 09/28/20 Report #: [id number] Path Case #: [id number] D12.5, D12.8 . 02 CPT . 991279, [id number], [id number] Specimen Comment: A courtesy copy of this report has been sent to [phone] Specimen Comment: Report sent to Performed at: [address] [facility] [address], [place], [place] [id number] MD Ruben Sarabia MD Phone: [phone] Performed at: 02 [facility] [place] [facility] [address], [place] [id number] MD Austyn Quarles MD Phone: [phone]
== END 2020-09-28 13:42 | disposition home health service (06) | DRG 682 ==
LOC: M.ERS 13:30 → M.TBA-ER 15:40 → M.3W 15:40
PROVIDERS: Family Medicine; Internal Medicine; Internal Medicine Nephrology; ADMIT Family Medicine; ATTEND Family Medicine
PROC: 0DBN8ZZ Excision of Sigmoid Colon, Via Natural or Artificial Opening Endoscopic (ICD-10-PCS; principal; 2020-09-26)
PROC: 0DBE8ZX Excision of Large Intestine, Via Natural or Artificial Opening Endoscopic, Diagnostic (ICD-10-PCS; principal; 2020-09-26)
PROC: 0DBP8ZZ Excision of Rectum, Via Natural or Artificial Opening Endoscopic (ICD-10-PCS; principal; 2020-09-26)
DX: N17.0 Acute kidney failure with tubular necrosis (principal); E43 Unspecified severe protein-calorie malnutrition; I13.0 Hypertensive heart and chronic kidney disease with heart failure and stage 1 through stage 4 chronic kidney disease, or unspecified chronic kidney disease; I50.32 Chronic diastolic (congestive) heart failure; K92.2 Gastrointestinal hemorrhage, unspecified; E11.22 Type 2 diabetes mellitus with diabetic chronic kidney disease; R32 Unspecified urinary incontinence; E11.40 Type 2 diabetes mellitus with diabetic neuropathy, unspecified; I48.0 Paroxysmal atrial fibrillation; E11.42 Type 2 diabetes mellitus with diabetic polyneuropathy; G47.33 Obstructive sleep apnea (adult) (pediatric); M10.9 Gout, unspecified; M19.90 Unspecified osteoarthritis, unspecified site; N18.32 Chronic kidney disease, stage 3b; E88.09 Other disorders of plasma-protein metabolism, not elsewhere classified; K21.9 Gastro-esophageal reflux disease without esophagitis; E87.6 Hypokalemia; D63.1 Anemia in chronic kidney disease; M62.84 Sarcopenia; E86.0 Dehydration; D12.5 Benign neoplasm of sigmoid colon; K62.1 Rectal polyp; K64.4 Residual hemorrhoidal skin tags; F32.9 Major depressive disorder, single episode, unspecified; E03.9 Hypothyroidism, unspecified; Z20.828 Contact with and (suspected) exposure to other viral communicable diseases; Z85.46 Personal history of malignant neoplasm of prostate; Z79.01 Long term (current) use of anticoagulants; Z92.3 Personal history of irradiation; Z90.49 Acquired absence of other specified parts of digestive tract; Z79.4 Long term (current) use of insulin; Z79.899 Other long term (current) drug therapy; Z68.28 Body mass index [BMI] 28.0-28.9, adult; Z89.512 Acquired absence of left leg below knee

== ENCOUNTER 2020-10-01 09:52 | Emergency (ER) | payer OTHER ==
[~2020-10-01] VITALS: Ht 175.3 cm; Wt 86.4 kg
[~2020-10-01 09:52] MED LIST changes: +FLORASTOR250 MG PO
[2020-10-01 09:56] VITALS: BP 157/71
[2020-10-01 10:16] LABS: HEMATOCRIT 31.7 % (42.0-52.0); HEMOGLOBIN 10.1 gm/dL (14.0-18.0); MCH 28.1 pg (26.0-34.0); MCV 88.1 fL (80.0-100.0); MPV 7.9 fl. (7.2-11.1); NUCLEATED RBCS 0 /100WBC; PLATELET COUNT* 145 thou/uL (150-400); RDW-CV 16.9 % (10.5-14.5); WBC 3.2 thou/uL (4.0-11.0)
[2020-10-01 10:24] LABS: CALCIUM 7.7 mg/dL (8.5-10.1); CREATININE 2.2 mg/dL (0.6-1.3); POTASSIUM 3.8 mmol/L (3.5-5.1)
[2020-10-01 10:35] LABS: ALBUMIN 2.2 g/dL (3.4-5.0); TOTAL BILIRUBIN 0.2 mg/dL (<0.1-1.0); TOTAL PROTEIN 5.7 g/dL (6.4-8.2)
[2020-10-01 10:37] LABS: APTT 31.3 Seconds (25.0-31.3); INR 1.1; PROTIME 11.6 Seconds (9.20-11.50)
[2020-10-01 10:39] LABS: URINE BILIRUBIN NEGATIVE (Negative); URINE BLOOD 2+ (Negative); URINE CLARITY CLEAR; URINE COLOR YELLOW; URINE GLUCOSE-RANDOM NEGATIVE (Negative); URINE KETONES NEGATIVE (Negative); URINE PROTEIN 1+ (Negative); URINE SPECIFIC GRAVITY 1.015 (1.005-1.030); URINE UROBILINOGEN 0.2 E.U./dl (0.2-1.0)
[2020-10-01 10:44] LABS: URINE LEUKOCYTES-REFLEX 2+ (Negative); URINE NITRITE-REFLEX POSITIVE (Negative)
[2020-10-01 11:00] LABS: BACTERIA-REFLEX >30 Many /HPF (None Seen); SQUAMOUS 0-3 Few /LPF (0-3); URINE WBC-REFLEX >25 Many /HPF (0-5)
[2020-10-01 11:01] LABS: CASTS None Seen /LPF (None Seen); URINE RBC 3-10 Few /HPF (0-2)
[2020-10-01 11:02] LABS: AMORPHOUS URATES Few /LPF (None Seen)
[2020-10-01 11:24] LABS: ABSOLUTE EOSINOPHILS 0.1 thou/uL (0.0-0.7); ABSOLUTE LYMPHOCYTES 0.1 thou/uL (0.8-5.3)
[2020-10-01 11:26] LABS: OVALOCYTES 1+
[2020-10-01 11:27] LABS: LARGE PLATELETS OCCASIONAL; PLATELET ESTIMATE DECREASED
[2020-10-01 11:28] LABS: TOXIC GRANULATION 1+
[2020-10-01 11:30] LABS: ANISOCYTOSIS 1+
[2020-10-01 13:29] VITALS: BP 160/76
--- NOTE | 2020-10-01 21:14 | NUR ---
TOYA FROM THE LAB CALLED WITH POSITIVE BLOOD CULTURE RESULTS FOR GRAM - RODS. CALLED [facility] AND GAVE RESULTS TO
--- NOTE | 2020-10-02 13:11 | EKG ---
[place] [address] ELECTROCARDIOGRAM REPORT Name: TRINI JULIEN Room: [facility]#: [id number] Admission: 10/01/20 Attend Phys: Discharge: 10/01/20 Date of : 47 Date of Service: 10/01/20 0958 Report #: [id number] THIS REPORT FOR: //name// [facility] ED Test Date: 2020-10-01 Test Time: 09:58:46 Pat Name: TRINI COHENANAYA Department: Room: [facility] Gender: M Cake Wrapper: RD : 1945 Requested By: Aravind Terrazas Order Number: [id number] MD: Raymon Guerrier Measurements Intervals [place] Rate: 90 P: AR: QRS: 60 QRSD: 150 T: -8 QT: 394 QTc: 482 Interpretive Statements Sinus rhythm Premature atrial contractions Right bundle branch block Compared to ECG 09/16/2020 15:18:52 Sinus bradycardia no longer present Electronically Signed On 10-02-2020 13:11:18 ROUTER SETTER by Raymon Guerrier [email or web address] <ELECTRONICALLY SIGNED> By: Raymon Guerrier MD, FACC 10/02/20 1311 0958 0958 Raymon Guerrier MD, FACC /EPI
== END 2020-10-01 13:30 | disposition short-term general hospital (02) ==
LOC: M.ERS 09:52 → M.TBA-ER 10:49
PROVIDERS: Family Medicine
DX: A41.9 Sepsis, unspecified organism (principal); Z20.828 Contact with and (suspected) exposure to other viral communicable diseases; N39.0 Urinary tract infection, site not specified; M10.9 Gout, unspecified; E03.9 Hypothyroidism, unspecified; M19.90 Unspecified osteoarthritis, unspecified site; I12.9 Hypertensive chronic kidney disease with stage 1 through stage 4 chronic kidney disease, or unspecified chronic kidney disease; E11.22 Type 2 diabetes mellitus with diabetic chronic kidney disease; N18.30 Chronic kidney disease, stage 3 unspecified; Z90.49 Acquired absence of other specified parts of digestive tract; Z79.899 Other long term (current) drug therapy; Z87.891 Personal history of nicotine dependence; Z79.4 Long term (current) use of insulin

== ENCOUNTER → 2021-02-28 | Outpatient (CLI) | payer OTHER ==
[2021-02-28 13:20] LABS: CALCIUM 8.4 mg/dL (8.5-10.1); CREATININE 1.5 mg/dL (0.6-1.3); POTASSIUM 4.4 mmol/L (3.5-5.1)
== END ==
LOC: M.LAB 12:42
PROVIDERS: ATTEND Registered Nurse
DX: I48.0 Paroxysmal atrial fibrillation (principal); I50.32 Chronic diastolic (congestive) heart failure; N18.32 Chronic kidney disease, stage 3b